=== PATIENT | female | born 1965 | race Caucasian/White ===

== ENCOUNTER → 2017-07-22 | Outpatient (CLI) | payer BC ==
[2017-07-22 09:55] VITALS: BP 110/76; PULSE 73; RESP 14; TEMP 98.4; BMI 38.9
--- NOTE | 2017-07-22 10:24 | P.PN ---
Subjective Progress Note Date: 07/22/17 HPI: She comes in with history of an adjustable band. She reports a complicated history of adjustments with Dr. Hernandez. She reports weight gain as she had lost contact with the bariatric center secondary to loss of insurance. Lowest weight with the band was 156 pounds. Highest weight was 298 pounds. She feels that she has lost restriction. ASSESSMANT: 1. Band complications. PLAN: 1. Abdominal Xray to investigate fracture of band tubing and or port. 2. Will need revision of band to new model as she has old high pressure out- dated system. 3. Band assessed without fluid return consistent with possible tube malfunction. 4. Other options for weight loss reviewed. Objective - Vital Signs Vital signs: Vital Signs Temp 98.4 F 07/22/17 09:40 Pulse 73 07/22/17 09:40 Resp 14 07/22/17 09:40 BP 110/76 07/22/17 09:40 Pulse Ox Intake & Output 07/21/17 07/22/17 07/22/17 18:59 06:59 18:59 Weight 112.763 kg
--- NOTE | 2017-07-22 11:37 | XR ---
EXAMINATION TYPE: XR abdomen 1V DATE OF EXAM: 07/22/2017 COMPARISON: 10/07/2014 HISTORY: Abdominal pain TECHNIQUE: One view abdominal series FINDINGS: The osseous structures are intact. The bowel gas pattern is nonspecific. Lap band surgery catheter n oted. Retained fecal debris throughout the colon. Hypertrophic and degenerative change of the spine. Arthropathy of the hips. Calcification the pelvis likely vascular. Surgical clips in the gallbladder fossa. IMPRESSION: 1. Nonspecific abdomen. Correlate for constipation.
== END | disposition home or self-care (01) ==
LOC: BARWHC3 09:22
PROVIDERS: ATTEND Surgery Plastic and Reconstructive Surgery
DX: K95.09 Other complications of gastric band procedure (principal); R63.5 Abnormal weight gain; Z98.84 Bariatric surgery status
CPT/HCPCS: 74018; 99212; 99213

== ENCOUNTER → 2017-07-29 | Outpatient (CLI) | payer BC ==
--- NOTE | 2017-07-29 08:41 | FL ---
EXAMINATION TYPE: FL barium swallow DATE OF EXAM: 07/29/2017 LAP BANDING LIMITED ESOPHAGRAM: CLINICAL HISTORY: Lap band placed roughly 10 years ago with dysphasia and pain over last few months. TECHNIQUE: Limited esophagram is performed utilizing 2-3 oz of barium. A total of 32 seconds of fluo roscopic time was utilized during procedure. 27 spot images are saved. COMPARISON: Abdominal x-ray from one week ago and from October 07, 2014 FINDINGS: Pre-procedure transfusion aide image shows lap band in satisfactory position in proximal stomach ju st below the left hemidiaphragm. The Phi angle is normal but noted slightly more vertical in positio n versus 2015 radiograph. Cholecystectomy clips are present. The patient then drank oral contrast. There is good flow of contrast along the course of the esophag us. There is good flow of contrast along the course of the lap band, there is no evidence of contras t extravasation to suggest leak. IMPRESSION: No fluoroscopic evidence of left band slippage or significant obstruction.
== END | disposition home or self-care (01) ==
LOC: RADFLMAIN 07:42
PROVIDERS: ATTEND Surgery Plastic and Reconstructive Surgery
DX: R13.10 Dysphagia, unspecified (principal); Z98.84 Bariatric surgery status
CPT/HCPCS: 74220

== ENCOUNTER → 2018-09-12 | Outpatient (CLI) | payer BC ==
[2018-09-12 17:02] VITALS: BP 145/83; PULSE 80; TEMP 98.6; BMI 40.7
--- NOTE | 2018-09-30 13:36 | P.HPBAR ---
Bariatric H&P - History & Physicial H&P Date: 09/12/18 History & Physicial: Visit/CC: band adjustment Patient initial contact: Initial weight: 134.717 kg Initial weight in pounds: 297.00 Height: 5 ft 7 in Initial BMI: 46.5 Last weight: Current weight: 117.934 kg Current weight in pounds: 260.00 Current BMI: 40.7 [place] body weight (based on NIH guidelines): 61.235 kg Excess body weight loss: 22.8% The patient is a 53 year-old F who presents for Bariatric Assessment. Patient presents today for her LAP-BAND adjustment. She's not been seen several years. She states she feels hungry and is requesting a fill. She has gained approximately 40 pounds last 6 months. Past Medical History Past Medical History: Thyroid Disorder Additional Past Medical History / Comment(s): environmental allergies History of Any Multi-Drug Resistant Organisms: None Reported Past Surgical History: Bariatric Surgery, Cholecystectomy, Hysterectomy, Tonsillectomy Additional Past Surgical History / Comment(s): lap band 2008, x2, Past Anesthesia/Blood Transfusion Reactions: No Reported Reaction Smoking Status: Former smoker Surgical - Exam Vital Signs Temp Pulse BP 98.6 F 80 145/83 09/12/18 16:55 09/12/18 16:55 09/12/18 16:55 - General well developed, well nourished, no distress - Abdomen Abdomen: soft, non tender Bariatric Assessment & Plan Plan: Patient's lap band was adjusted. Patient has a malfunctioning LAP-BAND port with evidence of fracture of the port. Patient was scheduled for replacement of LAP-BAND port. Bariatric Checklist Checklist: Plan: Checklist: EGD: 1. Hiatal hernia: 2. H. Pylori: HgbA1c: Vitamin D: Smoking: Former smoker Primary care physician referral: Shelia Boykin ([facility]) Psychiatry clearance: Cardiology clearance: Sleep study: Diet journal: VTE risk score: VTE risk level: Rehab needs at discharge:
== END | disposition home or self-care (01) ==
LOC: BARWHC3 15:36
PROVIDERS: ATTEND Surgery
DX: Z46.51 Encounter for fitting and adjustment of gastric lap band (principal); Z87.891 Personal history of nicotine dependence; Z98.84 Bariatric surgery status
CPT/HCPCS: 99212

== ENCOUNTER → 2018-09-22 | Outpatient (CLI) | payer BC ==
[2018-09-22 17:09] LABS: Basophils # (A) 0.1 k/uL (0-0.2); Basophils % (A) 1 %; Eosinophils # (A) 0.2 k/uL (0-0.7); Eosinophils % (A) 2 %; HCT 42.6 % (34.0-46.0); Lymphocytes # (A) 1.9 k/uL (1.0-4.8); Lymphocytes % (A) 20 %; MCH 31.5 pg (25.0-35.0); MCHC 32.8 g/dL (31.0-37.0); MCV 96.1 fL (80.0-100.0); Mean Platelet Volume 6.6; Monocytes # (A) 0.5 k/uL (0-1.0); Monocytes % (A) 6 %; Neutrophils # (A) 6.7 k/uL (1.3-7.7); Neutrophils % (A) 70 %; Platelet Count 328 k/uL (150-450); RBC 4.43 m/uL (3.80-5.40); WBC 9.5 k/uL (3.8-10.6)
[2018-09-22 17:13] LABS: ALT 12 U/L (9-52); AST 19 U/L (14-36); African American GFR (CKD) >90 (>60 ml/min/1.73 sqM); Albumin 4.3 g/dL (3.5-5.0); Alkaline Phosphatase 87 U/L (38-126); Anion Gap 9 mmol/L; Blood Urea Nitrogen 16 mg/dL (7-17); Calcium 9.7 mg/dL (8.4-10.2); Carbon Dioxide 26 mmol/L (22-30); Chloride 106 mmol/L (98-107); Glucose 82 mg/dL (74-99); Sodium 141 mmol/L (137-145); Total Bilirubin 0.5 mg/dL (0.2-1.3); Total Protein 7.6 g/dL (6.3-8.2)
== END | disposition home or self-care (01) ==
LOC: LABPAT 16:40
PROVIDERS: ATTEND Surgery
DX: Z01.812 Encounter for preprocedural laboratory examination (principal); Z01.818 Encounter for other preprocedural examination
CPT/HCPCS: 80053; 85025; 93005

== ENCOUNTER 2018-09-30 06:13 | Day surgery (SDC) | payer BC ==
[2018-09-28 11:57] VITALS: BMI 40.7
[~2018-09-30 06:13] MED LIST: DEXAMETHASONE SOD PHOSPHATE 10 MG/ML 1 ML VIAL IV ONE; HYDROmorphone 0.5 MG/0.5 ML SYRINGE IVP PRN; LACTATED RINGERS 1,000 ML IV SCH; ONDANSETRON 4 MG/2 ML VIAL IVP ONE; ONDANSETRON 4 MG/2 ML VIAL IVP PRN
[2018-09-30] MEDS ORDERED: LIDOCAINE 1% 20 ML VIAL (10MG/ML) FOR IV START INTRADERMA ONE (07:16)
[2018-09-30] MEDS ORDERED: HEPARIN SODIUM,PORCINE 5,000 UNIT/ML 1 ML VIAL SQ ONE (07:53)
[2018-09-30] MEDS ORDERED: SUCCINYLCHOLINE CHLORIDE 100 MG/5 ML SYR IV ONE (08:01)
[2018-09-30] MEDS ORDERED: LIDOCAINE 1% INJ 10MG/ML (20 ML MDV) ONE (08:01)
[2018-09-30] MEDS ORDERED: NEOSTIGMINE 1 MG/ML 10 ML VIAL ONE (08:01)
[2018-09-30] MEDS ORDERED: MIDAZOLAM 2 MG/2 ML VIAL ONE (08:01)
[2018-09-30] MEDS ORDERED: PROPOFOL 10 MG/ML 20 ML VIAL IV ONE (08:01)
[2018-09-30] MEDS ORDERED: fentaNYL (PF) 50 MCG/ML 2 ML AMP ONE (08:01)
[2018-09-30] MEDS ORDERED: KETOROLAC 30 MG/ML 1 ML VIAL ONE (08:01)
[2018-09-30] MEDS ORDERED: ROCURONIUM BROMIDE 10 MG/ML 10 ML VIAL IV ONE (08:01)
[2018-09-30] MEDS ORDERED: GLYCOPYRROLATE 0.2 MG/ML 2 ML VIAL ONE (08:01)
--- NOTE | 2018-09-30 08:06 | P.GSHP ---
History of Present Illness H&P Date: 09/30/18 Chief Complaint: LAP-BAND port malfunction This is a 53-year-old female who had LAP-BAND surgery performed several years ago. Patient notes a decrease in restriction. She was seen Shilpa found have a LAP-BAND port malfunction. Patient presents today for laparoscopic removal and replacement of LAP-BAND port. Past Medical History Past Medical History: Thyroid Disorder Additional Past Medical History / Comment(s): environmental allergies , Lap Band. History of Any Multi-Drug Resistant Organisms: None Reported Past Surgical History: Bariatric Surgery, Cholecystectomy, Hysterectomy, Tonsillectomy Additional Past Surgical History / Comment(s): lap band 2007 (Dr Friend)., c- section x2, Past Anesthesia/Blood Transfusion Reactions: No Reported Reaction Past Psychological History: No Psychological Hx Reported Smoking Status: Former smoker Past Alcohol Use History: None Reported Additional Past Alcohol Use History / Comment(s): quit smoking 1999, smoked 1 ppd, smoked approx 10 years. Past Drug Use History: None Reported - Past Family History Mother Family Medical History: Cancer Additional Family Medical History / Comment(s): Leukemia and Breast Cancer Medications and Allergies Home Medications Medication Instructions Recorded Confirmed Type Levothyroxine Sodium [Synthroid] 137 mcg PO DAILY 10/24/14 09/30/18 History Estradiol [Estrace] 0.5 mg PO DAILY 09/05/18 09/30/18 History Cetirizine HCl [Zyrtec] 10 mg PO DAILY 09/12/18 09/30/18 History Allergies Allergy/AdvReac Type Severity Reaction Status Date / Time egg Allergy Rash/Hives Verified 09/30/18 06:51 peanut Allergy Rash/Hives Verified 09/30/18 06:51 cat dander AdvReac Rash/Hives Verified 09/30/18 06:51 dog dander AdvReac Rash/Hives Verified 09/30/18 06:51 environmental AdvReac Rash/Hives Uncoded 09/30/18 06:51 pet dander AdvReac Rash/Hives Uncoded 09/30/18 06:51 Surgical - Exam Vital Signs Temp Pulse Resp BP Pulse Ox 98.3 F 73 16 123/58 95 09/30/18 07:14 09/30/18 07:14 09/30/18 07:14 09/30/18 07:14 07/19/19 07:14 - General well developed, well nourished, no distress - Eyes PERRL - ENT normal pinna - Neck no masses - Respiratory normal expansion - Cardiovascular Rhythm: regular - Abdomen Abdomen: soft, non tender Assessment and Plan Assessment: LAP-BAND port malfunction. We'll perform laparoscopic removal and replacement of LAP-BAND port.
[2018-09-30] MEDS ORDERED: BUPIVACAINE (PF) 0.25% 30 ML VIAL SQ ONE ×2 (08:24)
[2018-09-30 09:08] VITALS: TEMP 98
--- NOTE | 2018-09-30 09:09 | P.OP ---
Date of Procedure: 09/30/18 Preoperative Diagnosis: LAP-BAND port malfunction Postoperative Diagnosis: LAP-BAND port malfunction Procedure(s) Performed: Laparoscopic removal and replacement of LAP-BAND port Anesthesia: MARA Surgeon: Oneil Friend Estimated Blood Loss (ml): 5 Pathology: none sent Condition: stable Disposition: PACU Description of Procedure: The patient's placed on the operative table in the supine position. She received general anesthesia. Her abdomen was prepped and draped in the usual sterile fashion. The skin incision sites were anesthetized 1% local Xylocaine. The skin was incised over the LAP-BAND port then using blunt and sharp dissection and electrocautery the LAP-BAND port was dissected free. The LAP- BAND port was inspected. There appeared to be abrasion of the LAP-BAND port causing a fluid leak. The Tube was then cut. Next a 5 mm optical trocar is placed into the perineal cavity under direct vision at the LAP-BAND port site the abdomen was insufflated and then another 5 mm trocar was placed in the right epigastric position and a other 5 mm trocar was placed in the left lower quadrant. The camera is placed in left lower quadrant. The LAP-BAND Tube was then brought over to the right upper quadrant port site and then withdrawn from the peritoneal cavity. The trochars withdrawn. The new LAP-BAND port was connected to the Tube and then secured the fascia is using 0 Nurolon suture. The skin was closed with interrupted 3-0 Monocryl suture. The LAP-BAND had been flushed with 1 mL of normal saline. Patient tolerated procedure well was sent to recovery in stable condition.
[2018-09-30 09:49] VITALS: RESP 17
[2018-09-30 10:00] VITALS: BP 135/80; PULSE 72
== END 2018-09-30 10:32 | disposition home or self-care (01) ==
LOC: OR 06:13
PROVIDERS: ATTEND Surgery
DX: T85.518A Breakdown (mechanical) of other gastrointestinal prosthetic devices, implants and grafts, initial encounter (principal); K95.09 Other complications of gastric band procedure; E07.9 Disorder of thyroid, unspecified; Z90.49 Acquired absence of other specified parts of digestive tract; Z90.710 Acquired absence of both cervix and uterus; Z87.891 Personal history of nicotine dependence; Z80.3 Family history of malignant neoplasm of breast; Z80.6 Family history of leukemia; Z79.890 Hormone replacement therapy; Z79.899 Other long term (current) drug therapy; Z91.012 Allergy to eggs; Z91.018 Allergy to other foods; Z91.048 Other nonmedicinal substance allergy status
CPT/HCPCS: 43659; C1751; J2250; J1644; J1100; J2710; J0690; J2405; J2001; J3010; J1885; J0330; J2704

== ENCOUNTER → 2018-10-17 | Outpatient (CLI) | payer BC ==
[2018-10-17 15:50] VITALS: BP 111/72; PULSE 74; RESP 16; TEMP 98.4; BMI 40.4
--- NOTE | 2018-10-17 16:36 | P.HPBAR ---
Bariatric H&P - History & Physicial H&P Date: 10/17/18 History & Physicial: Visit/CC: Band Adj Patient initial contact: Initial weight: 134.717 kg Initial weight in pounds: 297.00 Height: 5 ft 7 in Initial BMI: 46.5 Last weight: Current weight: 117.027 kg Current weight in pounds: 258.00 Current BMI: 40.4 [place] body weight (based on NIH guidelines): 61.235 kg Excess body weight loss: 24.0% The patient is a 53 year-old F who presents for Bariatric Assessment. Patient presents today for lab band follow up. She had a recent port replacement. He is hungry requesting a fill. Past Medical History Past Medical History: Thyroid Disorder Additional Past Medical History / Comment(s): environmental allergies , Lap Band. History of Any Multi-Drug Resistant Organisms: None Reported Past Surgical History: Bariatric Surgery, Cholecystectomy, Hysterectomy, Tonsillectomy Additional Past Surgical History / Comment(s): lap band 2007 (Dr Friend)., c- section x2, Past Anesthesia/Blood Transfusion Reactions: No Reported Reaction Smoking Status: Former smoker - Past Family History Mother Family Medical History: Cancer Additional Family Medical History / Comment(s): Leukemia and Breast Cancer Surgical - Exam Vital Signs Temp Pulse Resp BP 98.4 F 74 16 111/72 10/17/18 15:48 10/17/18 15:48 10/17/18 15:48 10/17/18 15:48 - General well developed, well nourished, no distress - Eyes PERRL - ENT normal pinna - Neck no masses - Respiratory normal expansion - Cardiovascular Rhythm: regular - Abdomen Abdomen: soft, non tender Bariatric Assessment & Plan Plan: Patient's lap band was adjusted. She had 2 mL added to her band. She currently has 5 mL in the band. She's ill drink water without difficulty. She'll follow- up in 4 weeks. Bariatric Checklist Checklist: Plan: Checklist: EGD: 1. Hiatal hernia: 2. H. Pylori: HgbA1c: Vitamin D: Smoking: Former smoker Primary care physician referral: Shelia Boykni ([facility]) Psychiatry clearance: Cardiology clearance: Sleep study: Diet journal: VTE risk score: VTE risk level: Rehab needs at discharge:
== END | disposition home or self-care (01) ==
LOC: BARWHC3 15:32
PROVIDERS: ATTEND Surgery
DX: Z46.51 Encounter for fitting and adjustment of gastric lap band (principal); Z87.891 Personal history of nicotine dependence; Z90.49 Acquired absence of other specified parts of digestive tract
CPT/HCPCS: 99212

== ENCOUNTER → 2018-11-07 | Outpatient (CLI) | payer BC ==
--- NOTE | 2018-11-07 16:10 | P.HPBAR ---
Bariatric H&P - History & Physicial H&P Date: 11/07/18 History & Physicial: Visit/CC: Patient initial contact: Initial weight: 134.717 kg Initial weight in pounds: Height: Initial BMI: Last weight: Current weight: Current weight in pounds: Current BMI: [place] body weight (based on NIH guidelines): Excess body weight loss: The patient is a 53 year-old F who presents for Bariatric Assessment. She presents today for lab band follow up. She's lost 7 pounds since her last vis it. She's had some minimal.. Past Medical History Past Medical History: Thyroid Disorder Additional Past Medical History / Comment(s): environmental allergies , Lap Band. History of Any Multi-Drug Resistant Organisms: None Reported Past Surgical History: Bariatric Surgery, Cholecystectomy, Hysterectomy, Tonsillectomy Additional Past Surgical History / Comment(s): lap band 2007 (Dr Friend)., c- section x2, Past Anesthesia/Blood Transfusion Reactions: No Reported Reaction Smoking Status: Former smoker - Past Family History Mother Family Medical History: Cancer Additional Family Medical History / Comment(s): Leukemia and Breast Cancer Surgical - Exam - General well developed, well nourished, no distress - Eyes PERRL - Abdomen Abdomen: soft Bariatric Assessment & Plan Plan: Patient is an excellent weight loss since her last lap band fill. She was not adjusted today. Her GERD is minimal will be observed. She'll follow-up in 4 weeks. Bariatric Checklist Checklist: Plan: Checklist: EGD: 1. Hiatal hernia: 2. H. Pylori: HgbA1c: Vitamin D: Smoking: Former smoker Primary care physician referral: Shelia Boykin ([facility]) Psychiatry clearance: Cardiology clearance: Sleep study: Diet journal: VTE risk score: VTE risk level: Rehab needs at discharge:
[2018-11-07 16:13] VITALS: BP 138/84; PULSE 69; TEMP 98
== END | disposition home or self-care (01) ==
LOC: BARWHC3 15:36
PROVIDERS: ATTEND Surgery
DX: Z48.815 Encounter for surgical aftercare following surgery on the digestive system (principal); K21.9 Gastro-esophageal reflux disease without esophagitis; Z87.891 Personal history of nicotine dependence
CPT/HCPCS: 99211

== ENCOUNTER → 2018-11-28 | Outpatient (CLI) | payer BC ==
[2018-11-28 16:28] VITALS: BP 124/84; PULSE 73; RESP 16; TEMP 98.4; BMI 39.3
--- NOTE | 2018-11-28 16:38 | P.HPBAR ---
Bariatric H&P - History & Physicial H&P Date: 11/28/18 History & Physicial: Visit/CC: band adj Patient initial contact: Initial weight: 134.717 kg Initial weight in pounds: 297.00 Height: 5 ft 7 in Initial BMI: 46.5 Last weight: Current weight: 113.852 kg Current weight in pounds: 251.00 Current BMI: 39.3 [place] body weight (based on NIH guidelines): 61.235 kg Excess body weight loss: 28.3% The patient is a 53 year-old F who presents for Bariatric Assessment. Patient presents today for adjustment of her LAP-BAND. She currently feels hungry. Past Medical History Past Medical History: Thyroid Disorder Additional Past Medical History / Comment(s): environmental allergies , Lap Band. History of Any Multi-Drug Resistant Organisms: None Reported Past Surgical History: Bariatric Surgery, Cholecystectomy, Hysterectomy, Tonsillectomy Additional Past Surgical History / Comment(s): lap band 2007 (Dr Friend)., c- section x2, Past Anesthesia/Blood Transfusion Reactions: No Reported Reaction Past Psychological History: No Psychological Hx Reported Smoking Status: Former smoker Past Alcohol Use History: None Reported Additional Past Alcohol Use History / Comment(s): quit smoking 1999, smoked 1 ppd, smoked approx 10 years. Past Drug Use History: None Reported - Past Family History Mother Family Medical History: Cancer Additional Family Medical History / Comment(s): Leukemia and Breast Cancer Surgical - Exam Vital Signs Temp Pulse Resp BP 98.4 F 73 16 124/84 11/28/18 16:25 11/28/18 16:25 11/28/18 16:25 11/28/18 16:25 - General well developed, well nourished, no distress - Eyes PERRL - Abdomen Abdomen: soft, non tender Bariatric Assessment & Plan Plan: Patient's lap band was adjusted. She had 0.5 mL added to her band. She currently has 5.5 mL in the band. She was able to water without difficulty. She'll follow-up in 4 weeks. Bariatric Checklist Checklist: Plan: Checklist: EGD: 1. Hiatal hernia: 2. H. Pylori: HgbA1c: Vitamin D: Smoking: Former smoker Primary care physician referral: Shelia Boykin ([facility]) Psychiatry clearance: Cardiology clearance: Sleep study: Diet journal: VTE risk score: VTE risk level: Rehab needs at discharge:
== END | disposition home or self-care (01) ==
LOC: BARWHC3 15:57
PROVIDERS: ATTEND Surgery
DX: Z46.51 Encounter for fitting and adjustment of gastric lap band (principal); Z87.891 Personal history of nicotine dependence; Z98.84 Bariatric surgery status; Z90.49 Acquired absence of other specified parts of digestive tract; Z90.710 Acquired absence of both cervix and uterus
CPT/HCPCS: 99212

== ENCOUNTER → 2019-12-25 | Outpatient (CLI) | payer BC ==
[2019-12-25 14:48] VITALS: BP 159/65; PULSE 74; RESP 16; TEMP 98.9; BMI 36.9
--- NOTE | 2019-12-25 15:41 | P.HPBAR ---
Bariatric H&P - History & Physicial H&P Date: 12/25/19 History & Physicial: Visit/CC: band f/u Patient initial contact: Initial weight: 134.717 kg Initial weight in pounds: 297.00 Height: 5 ft 7 in Initial BMI: 46.5 Last weight: Current weight: 107.048 kg Current weight in pounds: 236.00 Current BMI: 36.9 [place] body weight (based on NIH guidelines): 61.235 kg Excess body weight loss: 37.6% The patient is a 54 year-old F who presents for Bariatric Assessment. Patient presents today for lab band follow. She has some complaints of GERD. Past Medical History Past Medical History: Thyroid Disorder Additional Past Medical History / Comment(s): environmental allergies History of Any Multi-Drug Resistant Organisms: None Reported Past Surgical History: Bariatric Surgery, Cholecystectomy, Hysterectomy, Tonsillectomy Additional Past Surgical History / Comment(s): lap band 2007 (Dr Friend)., c- section x2, Past Anesthesia/Blood Transfusion Reactions: No Reported Reaction Past Psychological History: No Psychological Hx Reported Smoking Status: Unknown if ever smoked Past Alcohol Use History: None Reported Additional Past Alcohol Use History / Comment(s): quit smoking 1999, smoked 1 ppd, smoked approx 10 years. Past Drug Use History: None Reported - Past Family History Mother Family Medical History: Cancer Additional Family Medical History / Comment(s): Leukemia and Breast Cancer Surgical - Exam Vital Signs Temp Pulse Resp BP 98.9 F 74 16 159/65 12/25/19 14:45 12/25/19 14:45 12/25/19 14:45 12/25/19 14:45 - General well developed, well nourished, no distress - Eyes PERRL - ENT normal pinna - Neck no masses - Respiratory normal expansion - Cardiovascular Rhythm: regular - Abdomen Abdomen: soft, non tender Bariatric Assessment & Plan Plan: Patient had 1 mL removed from her LAP-BAND. She will follow-up in 4 weeks. She currently has 3 mL in the band. Bariatric Checklist Checklist: Plan: Checklist: EGD: 1. Hiatal hernia: 2. H. Pylori: HgbA1c: Vitamin D: Smoking: Former smoker Primary care physician referral: Shelia Boykin ([facility]) Psychiatry clearance: Cardiology clearance: Sleep study: Diet journal: VTE risk score: VTE risk level: Rehab needs at discharge:
== END ==
LOC: BARWHC3 13:43
PROVIDERS: ATTEND Surgery
DX: Z48.815 Encounter for surgical aftercare following surgery on the digestive system (principal); Z98.84 Bariatric surgery status; Z87.891 Personal history of nicotine dependence; Z90.49 Acquired absence of other specified parts of digestive tract
CPT/HCPCS: 99212

== ENCOUNTER → 2019-12-28 | Outpatient (CLI) | payer BC ==
[2019-12-28 09:24] VITALS: BP 142/91; PULSE 82; RESP 16; TEMP 98.6; BMI 36.8
--- NOTE | 2019-12-28 09:33 | P.HPBAR ---
Bariatric H&P - History & Physicial H&P Date: 12/28/19 History & Physicial: Visit/CC: Band Adj-too tight Patient initial contact: Initial weight: 134.717 kg Initial weight in pounds: 297.00 Height: 5 ft 7 in Initial BMI: 46.5 Last weight: Current weight: 106.594 kg Current weight in pounds: 235.00 Current BMI: 36.8 [place] body weight (based on NIH guidelines): 61.235 kg Excess body weight loss: 38.2% The patient is a 54 year-old F who presents for Bariatric Assessment. Patient's complaints of GERD. She is question of fluid removed from her band. Past Medical History Past Medical History: Thyroid Disorder Additional Past Medical History / Comment(s): environmental allergies History of Any Multi-Drug Resistant Organisms: None Reported Past Surgical History: Bariatric Surgery, Cholecystectomy, Hysterectomy, Tonsillectomy Additional Past Surgical History / Comment(s): lap band 2007 (Dr Friend)., c- section x2, Past Anesthesia/Blood Transfusion Reactions: No Reported Reaction Smoking Status: Unknown if ever smoked - Past Family History Mother Family Medical History: Cancer Additional Family Medical History / Comment(s): Leukemia and Breast Cancer Surgical - Exam Vital Signs Temp Pulse Resp BP 98.6 F 82 16 142/91 12/28/19 09:21 12/28/19 09:21 12/28/19 09:21 12/28/19 09:21 - General well developed, well nourished, no distress - Eyes PERRL - ENT normal pinna - Neck no masses - Respiratory normal expansion - Cardiovascular Rhythm: regular - Abdomen Abdomen: soft, non tender Bariatric Assessment & Plan Plan: GERD. Patient LAP-BAND was entered. She had 5 mL removal LAP-BAND. She is scheduled for esophagus. She'll follow-up in 2 weeks. Bariatric Checklist Checklist: Plan: Checklist: EGD: 1. Hiatal hernia: 2. H. Pylori: HgbA1c: Vitamin D: Smoking: Former smoker Primary care physician referral: Shelia Boykin ([facility] Psychiatry clearance: Cardiology clearance: Sleep study: Diet journal: VTE risk score: VTE risk level: Rehab needs at discharge:
--- NOTE | 2019-12-28 16:49 | FL ---
EXAMINATION TYPE: FL barium swallow DATE OF EXAM: 12/28/2019 COMPARISON: None HISTORY: LAP-BAND, dysphasia TECHNIQUE: Single contrast utilizing Isovue was used for evaluation of the distal esophagus FINDINGS: LAP-BAND has a somewhat more vertical orientation currently measuring 18 degrees from verti tien compared to 29 previous. Following contrast administration contrast immediately passes through th e lap band. However, there is hesitancy of contrast completely emptying. There is delay emptying thro ugh the gastroesophageal lap band level. Note is made of multiple tertiary contractions during the ex amination Fluoroscopy time: 1 minute 22 seconds Images: 10 IMPRESSION: 1. No focal stenosis to the lap band is evident. However, there is moderate hesitancy passing throug h the lap band. 2. Presbyesophagus
== END | disposition home or self-care (01) ==
LOC: BARWHC3 09:08
PROVIDERS: ATTEND Surgery
DX: Z46.51 Encounter for fitting and adjustment of gastric lap band (principal); K22.8 Other specified diseases of esophagus; Z87.891 Personal history of nicotine dependence; Z90.49 Acquired absence of other specified parts of digestive tract; Z98.84 Bariatric surgery status
CPT/HCPCS: 74220; 99213; Q9967

== ENCOUNTER → 2020-01-01 | Outpatient (CLI) | payer BC ==
[2020-01-01 13:16] VITALS: BP 146/86; PULSE 103; TEMP 98; BMI 36.0
--- NOTE | 2020-01-08 14:58 | P.HPBAR ---
Bariatric H&P - History & Physicial H&P Date: 01/01/20 History & Physicial: Visit/CC: lap band follow up Patient initial contact: Initial weight: 134.717 kg Initial weight in pounds: 297.00 Height: 5 ft 7 in Initial BMI: 46.5 Last weight: Current weight: 104.326 kg Current weight in pounds: 230.00 Current BMI: 36.0 [place] body weight (based on NIH guidelines): 61.235 kg Excess body weight loss: 41.3% The patient is a 54 year-old F who presents for Bariatric Assessment. Patient's complaints of GERD and epigastric pain. She's also some mild dysphagia. Past Medical History Past Medical History: Thyroid Disorder Additional Past Medical History / Comment(s): environmental allergies History of Any Multi-Drug Resistant Organisms: None Reported Past Surgical History: Bariatric Surgery, Cholecystectomy, Hysterectomy, Tonsillectomy Additional Past Surgical History / Comment(s): lap band 2007 (Dr Friend)., c- section x2, Past Anesthesia/Blood Transfusion Reactions: No Reported Reaction Past Psychological History: No Psychological Hx Reported Smoking Status: Unknown if ever smoked Past Alcohol Use History: None Reported Additional Past Alcohol Use History / Comment(s): quit smoking 1999, smoked 1 ppd, smoked approx 10 years. Past Drug Use History: None Reported - Past Family History Mother Family Medical History: Cancer Additional Family Medical History / Comment(s): Leukemia and Breast Cancer Surgical - Exam Vital Signs Temp Pulse BP 98 F 103 H 146/86 01/01/20 13:13 01/01/20 13:13 01/01/20 13:13 - General well developed, well nourished, no distress - Eyes PERRL - ENT normal pinna - Neck no masses - Respiratory normal expansion - Cardiovascular Rhythm: regular - Abdomen Abdomen: soft, non tender Bariatric Assessment & Plan Plan: . Epigastric pain, mild dysphagia. Patient was scheduled for EGD. Bariatric Checklist Checklist: Plan: Checklist: EGD: 1. Hiatal hernia: 2. H. Pylori: HgbA1c: Vitamin D: Smoking: Former smoker Primary care physician referral: Shelia Boykin ([facility]) Psychiatry clearance: Cardiology clearance: Sleep study: Diet journal: VTE risk score: VTE risk level: Rehab needs at discharge:
== END | disposition home or self-care (01) ==
LOC: BARWHC3 12:40
PROVIDERS: ATTEND Surgery
DX: R13.10 Dysphagia, unspecified (principal); R10.13 Epigastric pain
CPT/HCPCS: 99211

== ENCOUNTER → 2020-01-04 | Day surgery (SDC) | payer BC ==
[2020-01-02 16:08] VITALS: BMI 36.0
[~2020-01-04] MED LIST changes: -DEXAMETHASONE SOD PHOSPHATE 10 MG/ML 1 ML VIAL IV ONE; -HYDROmorphone 0.5 MG/0.5 ML SYRINGE IVP PRN; -LACTATED RINGERS 1,000 ML IV SCH; +LIDOCAINE 1% (10MG/ML) FOR IV START INTRADERMA ONE; +LIDOCAINE 1% INJ 10MG/ML (20 ML MDV) ONE; -ONDANSETRON 4 MG/2 ML VIAL IVP ONE; -ONDANSETRON 4 MG/2 ML VIAL IVP PRN; +PROPOFOL 10 MG/ML 20 ML VIAL IV ONE
[2020-01-04 12:25] VITALS: TEMP 97.4
[2020-01-04] MEDS: LACTATED RINGERS 1,000 ML IV SCH ×2 (12:38→12:43)
--- NOTE | 2020-01-04 12:41 | P.GSHP ---
History of Present Illness H&P Date: 01/04/20 Chief Complaint: GERD, dysphagia Is a 51-year-old female history of LAP-BAND surgery. Patient's with GERD and dysphagia. She presents today for EGD. Past Medical History Past Medical History: GERD/Reflux, Thyroid Disorder Additional Past Medical History / Comment(s): environmental allergies, pt states unable to swallow pills unless she opens them and takes them with applesauce, states taking liquid diet . History of Any Multi-Drug Resistant Organisms: None Reported Past Surgical History: Bariatric Surgery, Cholecystectomy, Hysterectomy, Tonsillectomy Additional Past Surgical History / Comment(s): lap band 2007 (Dr Friend)., c- section x2, Past Anesthesia/Blood Transfusion Reactions: No Reported Reaction Past Psychological History: No Psychological Hx Reported Smoking Status: Former smoker Past Alcohol Use History: None Reported Additional Past Alcohol Use History / Comment(s): quit smoking 1999, smoked 1 ppd, smoked approx 10 years. Past Drug Use History: None Reported - Past Family History Mother Family Medical History: Cancer Additional Family Medical History / Comment(s): Leukemia and Breast Cancer Medications and Allergies Home Medications Medication Instructions Recorded Confirmed Type Levothyroxine Sodium [Synthroid] 137 mcg PO DAILY 10/24/14 01/04/20 History estradioL [Estrace] 0.5 mg PO DAILY 09/05/18 01/04/20 History Cetirizine HCl [Zyrtec] 10 mg PO DAILY 09/12/18 01/04/20 History Mylanta 1 dose PO DIRECTED PRN 01/02/20 01/04/20 History Omeprazole 40 mg PO DAILY 01/02/20 01/04/20 History Allergies Allergy/AdvReac Type Severity Reaction Status Date / Time egg Allergy Rash/Hives Verified 01/04/20 12:15 peanut Allergy Rash/Hives Verified 01/04/20 12:15 cat dander AdvReac Rash/Hives Verified 01/04/20 12:15 dog dander AdvReac Rash/Hives Verified 01/04/20 12:15 environmental AdvReac Rash/Hives Uncoded 01/04/20 12:15 pet dander AdvReac Rash/Hives Uncoded 01/04/20 12:15 Surgical - Exam Vital Signs Temp Pulse Resp BP Pulse Ox 97.4 F L 75 18 136/66 99 01/04/20 12:23 01/04/20 12:23 01/04/20 12:23 01/04/20 12:23 01/04/20 12:23 - General well developed, well nourished, no distress - Eyes PERRL - ENT normal pinna - Neck no masses - Respiratory normal expansion - Cardiovascular Rhythm: regular - Abdomen Abdomen: soft, non tender Assessment and Plan Assessment: GERD, dysphagia. We'll perform EGD.
--- NOTE | 2020-01-04 12:57 | P.OP ---
Date of Procedure: 01/04/20 Preoperative Diagnosis: GERD Epigastric pain Postoperative Diagnosis: Antral gastritis No evidence of inflammation or erosion of LAP-BAND Mild esophagitis Procedure(s) Performed: EGD Anesthesia: MAC Surgeon: Oneil Friend Pathology: other (Antrum, esophagus) Condition: stable Disposition: PACU Description of Procedure: The patient's placed on the endoscopy table in the lateral position. She received IV Cipro. The gastroscope was oropharynx past esophagus stomach. Scope was then placed through the pylorus. First and second portion of duodenum normal. The scope was then brought back the antrum this was mildly inflamed. A biopsies performed. Scope was unretroflexed and the remainder of the stomach appeared normal. There was no evidence of any inflammatory change of the LAP- BAND. There is no evidence of erosions. The GE junction was at 40 cm the distal esophagus appeared inflamed and a biopsies performed. The proximal esophagus appeared normal. Scope was withdrawn for patient
[2020-01-04 13:18] VITALS: BP 130/67; PULSE 71; RESP 16
== END ==
LOC: ORWHC2ENDO 10:39
PROVIDERS: ATTEND Surgery
DX: K21.00 Gastro-esophageal reflux disease with esophagitis, without bleeding (principal); K29.50 Unspecified chronic gastritis without bleeding; R13.10 Dysphagia, unspecified; E07.9 Disorder of thyroid, unspecified; Z98.84 Bariatric surgery status; Z90.49 Acquired absence of other specified parts of digestive tract; Z90.710 Acquired absence of both cervix and uterus; Z98.890 Other specified postprocedural states; Z87.891 Personal history of nicotine dependence; Z80.6 Family history of leukemia; Z80.3 Family history of malignant neoplasm of breast; Z79.890 Hormone replacement therapy; Z79.899 Other long term (current) drug therapy; Z91.012 Allergy to eggs; Z91.010 Allergy to peanuts; Z91.048 Other nonmedicinal substance allergy status
CPT/HCPCS: 88305; 43239; J2001; J2704

== ENCOUNTER 2020-01-10 03:44 | Emergency (ER) | payer BC ==
[2020-01-10] MEDS ORDERED: MAG HYDROX/AL HYDROX/SIMETH 30 ML, HYOSCYAMINE ELIXIR 10 ML, LIDOCAINE VISCOUS 2% 10 ML PO STA ×3 (05:05)
[2020-01-10] MEDS ORDERED: DICYCLOMINE 10 MG/ML 2 ML AMP IM STA (05:51)
[2020-01-10] MEDS ORDERED: SODIUM CHLORIDE 0.9% 500 ML 500 ML IV STA (06:43)
--- NOTE | 2020-01-10 07:16 | ED ---
General Adult HPI - General Source: patient Mode of arrival: ambulatory Limitations: no limitations - History of Present Illness -: days(s) Location: abdomen, left, right, lower extremity Quality: other Consistency: constant Improves with: none Worsens with: eating, medication Associated Symptoms: denies other symptoms Treatments Prior to Arrival: none <Charbel Talbert - Last Filed: 01/10/20 07:12> <Bola Gandhi - Last Filed: 01/10/20 09:00> - General Chief complaint: Allergic Reaction Stated complaint: Possible Med Reaction Time Seen by Provider: 01/10/20 04:24 - History of Present Illness Initial comments: This patient is a 54-year-old woman who presents with concern that she believes she is having a reaction to medication. The patient states she has been having chronic frontal headache which is a pressure-like sensation and has seen ENT for suspected chronic sinusitis. She had been given a number of courses of medication, including oral steroid, nasal steroid, course of Augmentin and now is taking a course of clarithromycin. The patient states that she has now taken 5 doses of erythromycin and she is having worsening symptoms consisting of generalized abdominal pain and bloating, nausea and inability to tolerate oral intake. She also is having bilateral lower extremity burning discomfort. She also feels anxious and shaky. Patient also has history of LAP-BAND surgery and did recently have upper endoscopy related to not being able take any oral intake. (Charbel Talbert) - Related Data Home Medications Medication Instructions Recorded Confirmed estradioL [Estrace] 0.5 mg PO DAILY 09/05/18 01/10/20 Albuterol Sulfate [Ventolin HFA] 2 puff INHALATION RT-Q4H PRN 01/10/20 01/10/20 Cetirizine HCl [Children's 10 mg PO DAILY 01/10/20 01/10/20 Cetirizine HCl] EPINEPHrine (Auto Inject) [Epipen] 0.3 mg IM ONCE PRN 01/10/20 01/10/20 Famotidine [Pepcid] 20 mg PO DAILY 01/10/20 01/10/20 Fluticasone Nasal [place] [Flonase 1 spr EA NOSTRIL BID 01/10/20 01/10/20 Nasal [place]] Levothyroxine Sodium [Synthroid] 137 mcg PO DAILY 01/10/20 01/10/20 Montelukast [Singulair] 10 mg PO DAILY 01/10/20 01/10/20 Omeprazole 20 mg PO BID 01/10/20 01/10/20 Previous Rx's Medication Instructions Recorded Famotidine [Pepcid] 20 mg PO DAILY #30 tablet 01/10/20 Sucralfate [Carafate] 1 gm PO BID #473 ml 01/10/20 Allergies Allergy/AdvReac Type Severity Reaction Status Date / Time egg Allergy Rash/Hives Verified 01/10/20 08:31 peanut Allergy Rash/Hives Verified 01/10/20 08:31 cat dander AdvReac Rash/Hives Verified 01/10/20 08:31 dog dander AdvReac Rash/Hives Verified 01/10/20 08:31 environmental AdvReac Rash/Hives Uncoded 01/10/20 03:51 pet dander AdvReac Rash/Hives Uncoded 01/10/20 03:51 Review of Systems ROS Other: All systems not noted in ROS Statement are negative. Constitutional: Reports: weakness. Denies: fever, chills Eyes: Denies: vision change Respiratory: Denies: cough, dyspnea Cardiovascular: Reports: palpitations. Denies: chest pain, dyspnea on exertion, orthopnea, edema Gastrointestinal: Reports: as per HPI, abdominal pain, nausea. Denies: vomiting, diarrhea, constipation, melena, hematochezia Genitourinary: Denies: dysuria, hematuria Musculoskeletal: Denies: back pain Skin: Denies: rash Neurological: Reports: as per HPI, paresthesias. Denies: headache, weakness, numbness <Charbel Talbert - Last Filed: 01/10/20 07:12> ROS Other: All systems not noted in ROS Statement are negative. <Bola Gandhi - Last Filed: 01/10/20 09:00> ROS Statement: Those systems with pertinent positive or pertinent negative responses have been documented in the HPI. Past Medical History Past Medical History: GERD/Reflux, Thyroid Disorder Additional Past Medical History / Comment(s): environmental allergies, pt states unable to swallow pills unless she opens them and takes them with applesauce, states taking liquid diet . History of Any Multi-Drug Resistant Organisms: None Reported Past Surgical History: Bariatric Surgery, Cholecystectomy, Hysterectomy, Tonsillectomy Additional Past Surgical History / Comment(s): lap band 2008 (Dr Friend)., c- section x2, Past Anesthesia/Blood Transfusion Reactions: No Reported Reaction Past Psychological History: No Psychological Hx Reported Smoking Status: Former smoker Past Alcohol Use History: None Reported Past Drug Use History: None Reported - Past Family History Mother Family Medical History: Cancer Additional Family Medical History / Comment(s): Leukemia and Breast Cancer <Charbel Talbert - Last Filed: 01/10/20 07:12> General Exam Limitations: no limitations General appearance: alert, anxious Head exam: Present: atraumatic, normocephalic Eye exam: Present: normal appearance. Absent: scleral icterus, conjunctival injection Neck exam: Present: normal inspection Respiratory exam: Present: normal lung sounds bilaterally. Absent: respiratory distress, wheezes, rales, rhonchi, stridor Cardiovascular Exam: Present: regular rate, normal rhythm, normal heart sounds. Absent: systolic murmur, diastolic murmur, rubs, gallop GI/Abdominal exam: Present: soft. Absent: distended, tenderness, guarding, rebound, rigid, mass, pulsatile mass, hernia Extremities exam: Present: normal inspection, normal capillary refill. Absent: pedal edema, calf tenderness Back exam: Present: normal inspection Neurological exam: Present: alert Psychiatric exam: Present: anxious Skin exam: Present: warm, dry, intact, normal color. Absent: rash <Charbel Talbert - Last Filed: 01/10/20 07:12> Course Vital Signs 01/10/20 01/10/20 01/10/20 03:49 05:00 06:45 Temperature 99.1 F 98.9 F 98.9 F Pulse Rate 94 87 82 Respiratory 18 16 18 Rate Blood Pressure 116/79 130/98 142/86 O2 Sat by Pulse 98 96 97 Oximetry Medical Decision Making - Lab Data Result diagrams: 01/10/20 06:55 01/10/20 06:55 <Bloa Gandhi - Last Filed: 01/10/20 09:00> - Medical Decision Making 53-year-old female with suspected medication reaction to clarithromycin. History of lap band with general abdominal discomfort. Workup reveals normal CBC, normal CMP, negative urinalysis. CT negative for acute intra-abdominal pathology. I discussed case with Dr. Friend who will see the patient in the bariatric clinic on Wednesday. Instructs Pepcid and Carafate. Patient feeling much better at the time my reevaluation. She will abstain from taking any more clarithromycin. This is listed as an ALLERGY. (Bola Gandhi) - Lab Data Lab Results 01/10/20 01/10/20 01/10/20 Range/Units 06:55 06:55 06:55 WBC 5.2 (3.8-10.6) k/uL RBC 4.60 (3.80-5.40) m/uL Hgb 14.6 (11.4-16.0) gm/dL Hct 43.3 (34.0-46.0) % MCV 94.1 (80.0-100.0) fL MCH 31.7 (25.0-35.0) pg MCHC 33.7 (31.0-37.0) g/dL RDW 12.4 (11.5-15.5) % Plt Count 237 (150-450) k/uL Neutrophils % 64 % Lymphocytes % 27 % Monocytes % 6 % Eosinophils % 1 % Basophils % 1 % Neutrophils # 3.3 (1.3-7.7) k/uL Lymphocytes # 1.4 (1.0-4.8) k/uL Monocytes # 0.3 (0-1.0) k/uL Eosinophils # 0.1 (0-0.7) k/uL Basophils # 0.0 (0-0.2) k/uL Sodium (137-145) mmol/L Potassium (3.5-5.1) mmol/L Chloride (98-107) mmol/L Carbon Dioxide (22-30) mmol/L Anion Gap mmol/L BUN (7-17) mg/dL Creatinine (0.52-1.04) mg/dL Est GFR (CKD-EPI)AfAm (>60 ml/min/1.73 sqM) Est GFR (CKD-EPI)NonAf (>60 ml/min/1.73 sqM) Glucose (74-99) mg/dL Calcium (8.4-10.2) mg/dL Total Bilirubin (0.2-1.3) mg/dL AST (14-36) U/L ALT (4-34) U/L Alkaline Phosphatase (38-126) U/L Total Protein (6.3-8.2) g/dL Albumin (3.5-5.0) g/dL Amylase (30-110) U/L Lipase (23-300) U/L Urine Color Colorless Urine Appearance Clear (Clear) Urine pH 7.5 (5.0-8.0) Ur Specific [place] 1.005 (1.001-1.035) Urine Protein Negative (Negative) Urine Glucose (UA) Negative (Negative) Urine Ketones Negative (Negative) Urine Blood Negative (Negative) Urine Nitrite Negative (Negative) Urine Bilirubin Negative (Negative) Urine Urobilinogen <2.0 (<2.0) mg/dL Ur Leukocyte Esterase Negative (Negative) Urine HCG, Qual Not Detected (Not Detectd) 01/10/20 Range/Units 06:55 WBC (3.8-10.6) k/uL RBC (3.80-5.40) m/uL Hgb (11.4-16.0) gm/dL Hct (34.0-46.0) % MCV (80.0-100.0) fL MCH (25.0-35.0) pg MCHC (31.0-37.0) g/dL RDW (11.5-15.5) % Plt Count (150-450) k/uL Neutrophils % % Lymphocytes % % Monocytes % % Eosinophils % % Basophils % % Neutrophils # (1.3-7.7) k/uL Lymphocytes # (1.0-4.8) k/uL Monocytes # (0-1.0) k/uL Eosinophils # (0-0.7) k/uL Basophils # (0-0.2) k/uL Sodium 140 (137-145) mmol/L Potassium 4.5 (3.5-5.1) mmol/L Chloride 106 (98-107) mmol/L Carbon Dioxide 27 (22-30) mmol/L Anion Gap 7 mmol/L BUN 6 L (7-17) mg/dL Creatinine 1.01 (0.52-1.04) mg/dL Est GFR (CKD-EPI)AfAm 74 (>60 ml/min/1.73 sqM) Est GFR (CKD-EPI)NonAf 64 (>60 ml/min/1.73 sqM) Glucose 99 (74-99) mg/dL Calcium 9.3 (8.4-10.2) mg/dL Total Bilirubin 0.7 (0.2-1.3) mg/dL AST 28 (14-36) U/L ALT 18 (4-34) U/L Alkaline Phosphatase 91 (38-126) U/L Total Protein 7.0 (6.3-8.2) g/dL Albumin 4.2 (3.5-5.0) g/dL Amylase 95 (30-110) U/L Lipase 120 (23-300) U/L Urine Color Urine Appearance (Clear) Urine pH (5.0-8.0) Ur Specific [place] (1.001-1.035) Urine Protein (Negative) Urine Glucose (UA) (Negative) Urine Ketones (Negative) Urine Blood (Negative) Urine Nitrite (Negative) Urine Bilirubin (Negative) Urine Urobilinogen (<2.0) mg/dL Ur Leukocyte Esterase (Negative) Urine HCG, Qual (Not Detectd) Disposition <Charbel Talbert - Last Filed: 01/10/20 07:12> Is patient prescribed a controlled substance at d/c from ED?: No Time of Disposition: 08:59 <Bola Gandhi - Last Filed: 01/10/20 09:00> Clinical Impression: Allergic reaction to drug, Abdominal pain Disposition: HOME SELF-CARE Instructions (If sedation given, give patient instructions): Abdominal Pain (ED), Adverse Drug Reaction (ED) Prescriptions: Sucralfate [Carafate] 1 gm PO BID #473 ml Famotidine [Pepcid] 20 mg PO DAILY #30 tablet Referrals: Len Silva MD [Primary Care Provider] - 1-2 days Oneil Friend MD [STAFF PHYSICIAN] - 1-2 days
[2020-01-10 07:19] LABS: Basophils % (A) 1 %; Eosinophils # (A) 0.1 k/uL (0-0.7); Eosinophils % (A) 1 %; HCT 43.3 % (34.0-46.0); HGB 14.6 gm/dL (11.4-16.0); Lymphocytes # (A) 1.4 k/uL (1.0-4.8); Lymphocytes % (A) 27 %; MCH 31.7 pg (25.0-35.0); MCHC 33.7 g/dL (31.0-37.0); MCV 94.1 fL (80.0-100.0); Monocytes # (A) 0.3 k/uL (0-1.0); Monocytes % (A) 6 %; Neutrophils # (A) 3.3 k/uL (1.3-7.7); Neutrophils % (A) 64 %; Platelet Count 237 k/uL (150-450); RDW 12.4 % (11.5-15.5); WBC 5.2 k/uL (3.8-10.6)
[2020-01-10 07:21] LABS: Appearance,Urine Clear (Clear); Bilirubin,Urine Negative (Negative); Blood,Urine Negative (Negative); Color,Urine Colorless; Glucose,Urine (UA) Negative (Negative); Ketones,Urine Negative (Negative); Leukocyte Esterase,Urine Negative (Negative); Nitrite,Urine Negative (Negative); PH, Urine 7.5 (5.0-8.0); Protein,Urine Negative (Negative); Specific Gravity,Urine 1.005 (1.001-1.035); Urobilinogen,Urine <2.0 mg/dL (<2.0)
[2020-01-10 07:30] LABS: Albumin 4.2 g/dL (3.5-5.0); Calcium 9.3 mg/dL (8.4-10.2); Potassium 4.5 mmol/L (3.5-5.1); Total Bilirubin 0.7 mg/dL (0.2-1.3)
--- NOTE | 2020-01-10 08:44 | CT ---
EXAMINATION TYPE: CT abdomen pelvis wo con DATE OF EXAM: 01/10/2020 HISTORY: Abdominal pain. Bloating and increased acid. CT DLP: 1142.2 mGycm. Automated Exposure Control for Dose Reduction was Utilized. TECHNIQUE: CT scan of the abdomen and pelvis is performed without oral or IV contrast. COMPARISON: NONE FINDINGS: Within the limitations of a non-contrast study, the following observations are made. LUNG BASES: Mild to minimal bibasilar linear scarring and/or atelectasis. LIVER/GB: Cholecystectomy clips. PANCREAS: No significant abnormality is seen. SPLEEN: No significant abnormality is seen. ADRENALS: No significant abnormality is seen. KIDNEYS: No renal stones or hydronephrosis seen bilaterally. BOWEL: Lap band device noted, position satisfactory. Suboptimal evaluation of bowel without enteric c ontrast. No suspicious bowel dilatation is seen. Single diverticulum in the sigmoid colon. No CT evid ence for acute diverticulitis. GENITAL ORGANS: Uterus surgically absent or markedly atrophic. Scattered pelvic phleboliths. Remnant ovary suspected axial image 75 are normal in size. LYMPH NODES: No greater than 1cm abdominal or pelvic lymph nodes are appreciated. OSSEOUS STRUCTURES: [id number] disc space narrowing lumbosacral junction. Mild axial joint sp raul loss with moderate acetabular spurring in both hips. OTHER: No significant additional abnormality is seen. IMPRESSION: No bowel obstruction. No ascites. No acute findings evident on noncontrast CT
[2020-01-10 09:16] VITALS: BP 132/78; PULSE 68; RESP 16; TEMP 98.1
== END 2020-01-10 09:17 | disposition home or self-care (01) ==
LOC: EC 03:44
DX: R51.9 Headache, unspecified (principal); T50.905A Adverse effect of unspecified drugs, medicaments and biological substances, initial encounter; R10.9 Unspecified abdominal pain; R11.0 Nausea; K21.9 Gastro-esophageal reflux disease without esophagitis; E07.9 Disorder of thyroid, unspecified; Z79.890 Hormone replacement therapy; Z79.899 Other long term (current) drug therapy; Z98.84 Bariatric surgery status; Z87.891 Personal history of nicotine dependence; Z91.012 Allergy to eggs; Z91.010 Allergy to peanuts; Z91.018 Allergy to other foods; Z90.49 Acquired absence of other specified parts of digestive tract; Z90.710 Acquired absence of both cervix and uterus
CPT/HCPCS: 36415; 80053; 82150; 83690; 85025; 81003; 81025; 74176; 96372; 99284; J0500

== ENCOUNTER 2020-01-11 01:05 | Observation (INO) | payer BC ==
[2020-01-11] MEDS ORDERED: MAG HYDROX/AL HYDROX/SIMETH 30 ML, HYOSCYAMINE ELIXIR 10 ML, LIDOCAINE VISCOUS 2% 10 ML PO STA ×3 (01:28)
--- NOTE | 2020-01-11 02:04 | ED ---
General Adult HPI - General Chief complaint: Recheck/Abnormal Lab/Rx Stated complaint: abdominal pain, recheck Time Seen by Provider: 01/11/20 01:15 Source: patient Mode of arrival: ambulatory Limitations: no limitations - History of Present Illness Initial comments: this patient is a 54-year-old woman who presents here to have reevaluation 4 chest and upper abdominal pain. This been going on for approximately 3 days now. She had been here yesterday and had evaluation for same. She was feeling a little better after medication, and her case had been reviewed with her surgeon who wanted to see her in the clinic. The patient states that she went home yesterday, had something to eat around noon and then any symptoms recur, and have been getting worse over the course of the evening. -: days(s) Location: chest, abdomen Quality: burning, sharp Consistency: constant Improves with: none Worsens with: eating Associated Symptoms: chest pain, nausea/vomiting Treatments Prior to Arrival: none - Related Data Home Medications Medication Instructions Recorded Confirmed estradioL [Estrace] 0.5 mg PO DAILY 09/05/18 01/15/20 Albuterol Sulfate [Ventolin HFA] 2 puff INHALATION RT-Q4H PRN 01/10/20 01/15/20 Cetirizine HCl [Children's 10 mg PO DAILY 01/10/20 01/15/20 Cetirizine HCl] EPINEPHrine (Auto Inject) [Epipen] 0.3 mg IM ONCE PRN 01/10/20 01/15/20 Fluticasone Nasal [place] [Flonase 1 spr EA NOSTRIL BID 01/10/20 01/15/20 Nasal [place]] Levothyroxine Sodium [Synthroid] 137 mcg PO DAILY 01/10/20 01/15/20 Montelukast [Singulair] 10 mg PO DAILY 01/10/20 01/15/20 Omeprazole 20 mg PO BID 01/10/20 01/15/20 Previous Rx's Medication Instructions Recorded Acetaminophen Tab [Tylenol] 650 mg PO Q6H #30 tab 01/12/20 Docusate [Colace] 100 mg PO BID #20 capsule 01/12/20 oxyCODONE HCL [OxyIR] 5 mg PO Q4H PRN 3 Days #18 tab 01/12/20 Allergies Allergy/AdvReac Type Severity Reaction Status Date / Time cat dander Allergy Rash/Hives Verified 01/15/20 10:27 clarithromycin Allergy Unknown Verified 01/15/20 10:27 dog dander Allergy Rash/Hives Verified 01/15/20 10:27 egg Allergy Rash/Hives Verified 01/15/20 10:27 peanut Allergy Rash/Hives Verified 01/15/20 10:27 environmental Allergy Rash/Hives Uncoded 01/15/20 10:27 pet dander Allergy Rash/Hives Uncoded 01/15/20 10:27 Review of Systems ROS Statement: Those systems with pertinent positive or pertinent negative responses have been documented in the HPI. ROS Other: All systems not noted in ROS Statement are negative. Constitutional: Denies: fever, chills, weakness ENT: Reports: throat pain Respiratory: Denies: cough, dyspnea, wheezes Cardiovascular: Reports: chest pain. Denies: palpitations, orthopnea, edema, syncope Gastrointestinal: Reports: abdominal pain, nausea. Denies: vomiting, diarrhea, constipation Genitourinary: Denies: dysuria, hematuria Musculoskeletal: Denies: back pain Skin: Denies: rash Neurological: Reports: headache. Denies: weakness, numbness, paresthesias Psychiatric: Reports: anxiety Hematological/Lymphatic: Denies: easy bleeding Past Medical History Past Medical History: GERD/Reflux, Thyroid Disorder Additional Past Medical History / Comment(s): environmental allergies, pt states unable to swallow pills unless she opens them and takes them with applesauce, states taking liquid diet . History of Any Multi-Drug Resistant Organisms: None Reported Past Surgical History: Bariatric Surgery, Cholecystectomy, Hysterectomy, Tonsillectomy Additional Past Surgical History / Comment(s): lap band 2008 (Dr Friend)., c- section x2, Past Anesthesia/Blood Transfusion Reactions: No Reported Reaction Past Psychological History: No Psychological Hx Reported Smoking Status: Former smoker Past Alcohol Use History: None Reported Past Drug Use History: None Reported - Past Family History Mother Family Medical History: Cancer Additional Family Medical History / Comment(s): Leukemia and Breast Cancer General Exam Limitations: no limitations General appearance: alert, in no apparent distress, anxious Head exam: Present: atraumatic, normocephalic Eye exam: Present: normal appearance. Absent: scleral icterus, conjunctival injection ENT exam: Present: normal oropharynx Neck exam: Present: normal inspection Respiratory exam: Present: normal lung sounds bilaterally. Absent: respiratory distress, wheezes, rales, rhonchi, stridor Cardiovascular Exam: Present: regular rate, normal rhythm, normal heart sounds. Absent: systolic murmur, diastolic murmur, rubs, gallop GI/Abdominal exam: Present: soft, normal bowel sounds. Absent: distended, tenderness, guarding, rebound, rigid, mass, pulsatile mass Extremities exam: Present: normal inspection, normal capillary refill. Absent: pedal edema, calf tenderness Back exam: Present: normal inspection. Absent: CVA tenderness (R), CVA tenderness (L) Neurological exam: Present: alert Skin exam: Present: warm, dry, intact, normal color. Absent: rash Course Vital Signs 01/11/20 01/11/20 01:07 04:00 Temperature 99 F Pulse Rate 82 82 Respiratory 18 16 Rate Blood Pressure 125/83 137/64 O2 Sat by Pulse 98 98 Oximetry EKG Findings - EKG Comments: EKG Findings:: possible old anterior infarct. - EKG Results: EKG: interpreted by ASA, sinus rhythm (rate 67 bpm), normal axis, normal ST/T Medical Decision Making - Medical Decision Making the patient is 54-year-old womanwith chest and abdominal pain which has continued despite medical therapy. We'll admit patient for - Lab Data Result diagrams: 01/11/20 01:58 01/11/20 01:58 Lab Results 01/11/20 01/11/20 01/11/20 Range/Units 01:58 01:58 01:58 WBC 5.0 (3.8-10.6) k/uL RBC 4.78 (3.80-5.40) m/uL Hgb 14.6 (11.4-16.0) gm/dL Hct 45.4 (34.0-46.0) % MCV 94.9 (80.0-100.0) fL MCH 30.6 (25.0-35.0) pg MCHC 32.2 (31.0-37.0) g/dL RDW 12.9 (11.5-15.5) % Plt Count 268 (150-450) k/uL Neutrophils % 60 % Lymphocytes % 30 % Monocytes % 6 % Eosinophils % 2 % Basophils % 0 % Neutrophils # 3.0 (1.3-7.7) k/uL Lymphocytes # 1.5 (1.0-4.8) k/uL Monocytes # 0.3 (0-1.0) k/uL Eosinophils # 0.1 (0-0.7) k/uL Basophils # 0.0 (0-0.2) k/uL Sodium 137 (137-145) mmol/L Potassium 4.3 (3.5-5.1) mmol/L Chloride 107 (98-107) mmol/L Carbon Dioxide 23 (22-30) mmol/L Anion Gap 7 mmol/L BUN 6 L (7-17) mg/dL Creatinine 0.91 (0.52-1.04) mg/dL Est GFR (CKD-EPI)AfAm 83 (>60 ml/min/1.73 sqM) Est GFR (CKD-EPI)NonAf 72 (>60 ml/min/1.73 sqM) Glucose 109 H (74-99) mg/dL Calcium 9.6 (8.4-10.2) mg/dL Total Bilirubin 0.7 (0.2-1.3) mg/dL AST 31 (14-36) U/L ALT 19 (4-34) U/L Alkaline Phosphatase 89 (38-126) U/L Troponin I <0.012 (0.000-0.034) ng/mL Total Protein 7.1 (6.3-8.2) g/dL Albumin 4.1 (3.5-5.0) g/dL Amylase 83 (30-110) U/L Lipase 97 (23-300) U/L Disposition Clinical Impression: Abdominal pain Disposition: ADMITTED IP TO THIS HOSP Condition: Stable
[2020-01-11 02:21] LABS: Basophils % (A) 0 %; Eosinophils # (A) 0.1 k/uL (0-0.7); Eosinophils % (A) 2 %; HCT 45.4 % (34.0-46.0); HGB 14.6 gm/dL (11.4-16.0); Lymphocytes # (A) 1.5 k/uL (1.0-4.8); Lymphocytes % (A) 30 %; MCH 30.6 pg (25.0-35.0); MCHC 32.2 g/dL (31.0-37.0); MCV 94.9 fL (80.0-100.0); Mean Platelet Volume 6.8; Monocytes # (A) 0.3 k/uL (0-1.0); Monocytes % (A) 6 %; Neutrophils % (A) 60 %; Platelet Count 268 k/uL (150-450); RBC 4.78 m/uL (3.80-5.40); RDW 12.9 % (11.5-15.5)
[2020-01-11 02:22] LABS: Albumin 4.1 g/dL (3.5-5.0); Calcium 9.6 mg/dL (8.4-10.2); Potassium 4.3 mmol/L (3.5-5.1); Total Bilirubin 0.7 mg/dL (0.2-1.3); Total Protein 7.1 g/dL (6.3-8.2)
[2020-01-11] MEDS ORDERED: MORPHINE SULFATE 4 MG/ML SYRINGE IV STA (02:55)
[2020-01-11] MEDS ORDERED: fentaNYL (PF) 50 MCG/ML 2 ML AMP IV STA (03:25)
[2020-01-11] MEDS ORDERED: NALOXONE 0.4 MG/ML 1 ML VIAL IV PRN (04:14)
[2020-01-11] MEDS ORDERED: ACETAMINOPHEN TAB 325 MG TAB PO PRN (04:14)
[2020-01-11] MEDS ORDERED: HYDROmorphone 0.5 MG/0.5 ML SYRINGE IVP PRN (04:14)
[2020-01-11] MEDS ORDERED: ONDANSETRON 4 MG/2 ML VIAL IVP PRN (04:14)
[2020-01-11] MEDS ORDERED: MORPHINE SULFATE 4 MG/ML SYRINGE IV PRN (04:14)
[2020-01-11] MEDS ORDERED: MAG HYDROX/AL HYDROX/SIMETH 30 ML CUP PO PRN (04:14)
[2020-01-11] MEDS: SODIUM CHLORIDE 0.9% 1,000 ML IV SCH ×3 (04:34→21:30)
[2020-01-11] MEDS: LEVOTHYROXINE 137 MCG TAB PO SCH (05:30)
[2020-01-11] MEDS: MONTELUKAST 10 MG TAB PO SCH (08:31)
[2020-01-11] MEDS: FAMOTIDINE 20 MG TAB PO SCH ×2 (08:31→21:29)
[2020-01-11] MEDS ORDERED: SUCRALFATE 1 GM/10 ML PO SCH (09:00)
[2020-01-11] MEDS ORDERED: PANTOPRAZOLE 40 MG TABLET PO SCH ×2 (09:00→17:30)
[2020-01-11] MEDS ORDERED: PANTOPRAZOLE 40 MG/10 ML VIAL IVP SCH (09:00)
[2020-01-11] MEDS ORDERED: SUCRALFATE 1 GM TAB PO SCH (09:00)
--- NOTE | 2020-01-11 11:42 | P.GSCN ---
History of Present Illness Consult date: 01/11/20 History of present illness: CHIEF COMPLAINT: Abdominal pain and heartburn HISTORY OF PRESENT ILLNESS: This is a 54-year-old female with a known history of lap band placed in 2007, GERD, hypothyroidism, cholecystectomy, hysterectomy and . Patient has been to the ER 2 days in a row. Rarely she has been having upper abdominal pain and severe heartburn and indigestion. She reports that she feels that her chest is on fire from the indigestion. She was taking omeprazole, Pepcid and Tums at home with no improvement in her symptoms. Patient reports that she has been dealing with heartburn and abdominal discomfort for the last 6 weeks. She did go to see Dr. Friend 2 weeks ago and had 1 mL of fluid removed from her lap band. This did not improve her symptoms she returns to his office last and had all of the fluid completely removed from the lap band. Patient has still been dealing with symptoms underwent EGD on 01/04/2020 Results showing antral gastritis and mild esophagitis and no evidence of inflammation or erosion of the lap band. He is having significant acid reflux and regurg. She denies any fever chills or sweats. Denies any change in bowel habits. She's had poor oral intake. She reports any and all foods worsen her symptoms. PAST MEDICAL HISTORY: See list. PAST SURGICAL HISTORY: See list. MEDICATIONS: See list. ALLERGIES: See list. SOCIAL HISTORY: No illicit drug use. REVIEW OF SYSTEMS: CONSTITUTIONAL: Denies fever or chills. HEENT: Denies blurred vision, vision changes, or eye pain. Denies hemoptysis CARDIOVASCULAR: Denies chest pain or pressure. RESPIRATORY: No shortness of breath. GASTROINTESTINAL: See HPI for pertinent findings HEMATOLOGIC: Denies bleeding disorders. GENITOURINARY: Denies any blood in urine or increased urinary frequency. SKIN: Denies pruitis. Denies rash. PHYSICAL EXAM: VITAL SIGNS: Reviewed GENERAL: Well-developed in no acute distress. HEENT: No sclera icterus. Extraocular movements grossly intact. Moist buccal mucosa. Head is atraumatic, normocephalic. No nasal drainage. ABDOMEN: Soft. Nondistended. Mild epigastric discomfort with palpation NEUROLOGIC: Alert and oriented. Cranial nerves II through XII grossly intact. LABORATORY DATA: WBC 5.0 hemoglobin 14.6 platelets 268 creatinine 0.91 LFTs normal troponin normal lipase 96 IMAGING: Computed tomography scan of the abdomen without contrast shows no bowel obstruction. No ascites. No acute findings evident on noncontrast CT EKG normal sinus rhythm. Cannot rule out anterior infarct, age undetermined ASSESSMENT: 1. Abdominal pain with severe heartburn and indigestion 2. Lap band placed in 2007 3. History of GERD 4. Recent EGD showing antral gastritis and mild esophagitis and no evidence of inflammation or erosion of the lap band PLAN: -Patient scheduled for lap band removal for tomorrow with Dr. Friend -Continue IV Protonix 40 twice a day -Continue Maalox as needed -Continue Zofran as needed -continue the Carafate -Continue Pepcid 20 mg twice a day Physician Repossessor note has been reviewed by physician. Signing provider agrees with the documented findings, assessment, and plan of care. Past Medical History Past Medical History: GERD/Reflux, Thyroid Disorder Additional Past Medical History / Comment(s): environmental allergies, pt states unable to swallow pills unless she opens them and takes them with applesauce, states taking liquid diet . History of Any Multi-Drug Resistant Organisms: None Reported Past Surgical History: Bariatric Surgery, Cholecystectomy, Hysterectomy, Tonsillectomy Additional Past Surgical History / Comment(s): lap band 2007 (Dr Friend)., c- section x2, Past Anesthesia/Blood Transfusion Reactions: No Reported Reaction Past Psychological History: No Psychological Hx Reported Smoking Status: Former smoker Past Alcohol Use History: None Reported Past Drug Use History: None Reported - Past Family History Mother Family Medical History: Cancer Additional Family Medical History / Comment(s): Leukemia and Breast Cancer Medications and Allergies Home Medications Medication Instructions Recorded Confirmed Type estradioL [Estrace] 0.5 mg PO DAILY 09/05/18 01/11/20 History Albuterol Sulfate [Ventolin HFA] 2 puff INHALATION RT-Q4H PRN 01/10/20 01/11/20 History Cetirizine HCl [Children's 10 mg PO DAILY 01/10/20 01/11/20 History Cetirizine HCl] EPINEPHrine (Auto Inject) [Epipen] 0.3 mg IM ONCE PRN 01/10/20 01/11/20 History Famotidine [Pepcid] 20 mg PO DAILY 01/10/20 01/11/20 History Fluticasone Nasal [place] [Flonase 1 spr EA NOSTRIL BID 01/10/20 01/11/20 History Nasal [place]] Levothyroxine Sodium [Synthroid] 137 mcg PO DAILY 01/10/20 01/11/20 History Montelukast [Singulair] 10 mg PO DAILY 01/10/20 01/11/20 History Omeprazole 20 mg PO BID 01/10/20 01/11/20 History Sucralfate [Carafate] 1 gm PO BID #473 ml 01/10/20 01/11/20 Rx Allergies Allergy/AdvReac Type Severity Reaction Status Date / Time cat dander Allergy Rash/Hives Verified 01/11/20 06:35 clarithromycin Allergy Unknown Verified 01/11/20 06:35 dog dander Allergy Rash/Hives Verified 01/11/20 06:35 egg Allergy Rash/Hives Verified 01/11/20 06:35 peanut Allergy Rash/Hives Verified 01/11/20 06:35 environmental Allergy Rash/Hives Uncoded 01/11/20 06:35 pet dander Allergy Rash/Hives Uncoded 01/11/20 06:35 Surgical - Exam Vital Signs Temp Pulse Resp BP Pulse Ox 99 F 82 18 125/83 98 01/11/20 01:07 01/11/20 01:07 01/11/20 01:07 01/11/20 01:07 01/11/20 01:07 Results - Labs 01/11/20 01:58 01/11/20 01:58 Abnormal Lab Results - Last 24 Hours (Table) 01/11/20 Range/Units 01:58 BUN 6 L (7-17) mg/dL Glucose 109 H (74-99) mg/dL Diabetes panel 01/11/20 Range/Units 01:58 Sodium 137 (137-145) mmol/L Potassium 4.3 (3.5-5.1) mmol/L Chloride 107 (98-107) mmol/L Carbon Dioxide 23 (22-30) mmol/L BUN 6 L (7-17) mg/dL Creatinine 0.91 (0.52-1.04) mg/dL Glucose 109 H (74-99) mg/dL Calcium 9.6 (8.4-10.2) mg/dL AST 31 (14-36) U/L ALT 19 (4-34) U/L Alkaline Phosphatase 89 (38-126) U/L Total Protein 7.1 (6.3-8.2) g/dL Albumin 4.1 (3.5-5.0) g/dL Calcium panel 01/11/20 Range/Units 01:58 Calcium 9.6 (8.4-10.2) mg/dL Albumin 4.1 (3.5-5.0) g/dL Pituitary panel 01/11/20 Range/Units 01:58 Sodium 137 (137-145) mmol/L Potassium 4.3 (3.5-5.1) mmol/L Chloride 107 (98-107) mmol/L Carbon Dioxide 23 (22-30) mmol/L BUN 6 L (7-17) mg/dL Creatinine 0.91 (0.52-1.04) mg/dL Glucose 109 H (74-99) mg/dL Calcium 9.6 (8.4-10.2) mg/dL Adrenal panel 01/11/20 Range/Units 01:58 Sodium 137 (137-145) mmol/L Potassium 4.3 (3.5-5.1) mmol/L Chloride 107 (98-107) mmol/L Carbon Dioxide 23 (22-30) mmol/L BUN 6 L (7-17) mg/dL Creatinine 0.91 (0.52-1.04) mg/dL Glucose 109 H (74-99) mg/dL Calcium 9.6 (8.4-10.2) mg/dL Total Bilirubin 0.7 (0.2-1.3) mg/dL AST 31 (14-36) U/L ALT 19 (4-34) U/L Alkaline Phosphatase 89 (38-126) U/L Total Protein 7.1 (6.3-8.2) g/dL Albumin 4.1 (3.5-5.0) g/dL
[2020-01-11] MEDS: CALCIUM CARBONATE LIQUID 500 MG/5 ML CUP PO SCH ×3 (13:13→20:16)
[2020-01-11] MEDS ORDERED: ACETAMINOPHEN IV (For NPO) 1,000 MG in EMPTY BAG 1 BAG IVPB ONE ×2 (14:00→20:30)
--- NOTE | 2020-01-11 16:29 | P.HPIM ---
History of Present Illness H&P Date: 01/11/20 Chief Complaint: Heartburn History of presenting complaint: This is a 54-year-old patient of Dr. todd from [place]. Chronic stable medical conditions include hypothyroid, environmental ALLERGIES, obesity. Patient for close to 6 weeks has been having symptoms as described below. After eating she gets bloating sensation in the upper epigastrium and also develops se hever heartburn. She gets a burning sensation up to the ears to throat sensation goes down the arms and the back. About 4 weeks ago she was started on omeprazole 20 mg twice a day. Patient on January [address] Friend and had the fluid taken out of for lap band. Some gastritis was noted. She is been not been able to eat fairly well for last 4-6 weeks. Feels really distraught. The lab and she lost about 150 pounds that she put back on about 60 pounds. Denies any cardiac history. All the symptoms are primarily related to eating. Review of systems: GEN.: Tired EYES: None HEENT: None NECK: None RESPIRATORY: None CARDIOVASCULAR: None GASTROINTESTINAL: As above GENITOURINARY: None MUSCULOSKELETAL: None LYMPHATICS: None HEMATOLOGICAL: None PSYCHIATRY: Anxious NEUROLOGICAL: None Past medical history to include: GERD, hypothyroid, environmental ALLERGIES, trouble swallowing pills,. Lap banding [address] Friend. 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 . Patient smoked for about 10 years stopped in 1999. Smoked a pack a day. No alcohol. Physical examination: VITAL SIGNS: 98.5, 68, 18, 124/78, 99% room air GENERAL:. BMI 36, sitting on bed, uncomfortable, anxious. EYES: Pupils equal. Conjunctiva normal. HEENT: External appearance of nose and ears normal, oral cavity grossly normal. NECK: JVD not raised; masses not palpable. HEART: First and second heart sounds are normal; no edema. LUNGS: Respiratory rate normal; clear to auscultation. ABDOMEN: Soft, mild epigastric tenderness, liver spleen not palpable, no masses palpable. PSYCH: Alert and oriented x3; mood and affect anxious l. NEUROLOGICAL: Cranial nerves grossly intact; no facial asymmetry, power and sensation grossly intact. LYMPHATICS: No lymph nodes palpable in the axilla and neck INVESTIGATIONS, reviewed in the clinical context: White count 5 hemoglobin 14.6 platelets 268 potassium 4.3 creatinine 0.91 Troponin I 2 EKG tracing personally reviewed by me-sinus rhythm, poor R-wave progression Assessment: -This is a patient who had a lap band placed in 2007. Lasix 6070 progressively worsening symptoms of reflux. Gets a bloating sensation after eating food. Did have an EGD did not show any major abnormality except for some slight gastritis. Patient definitely has exacerbated reflux symptoms. Not responding well to outpatient treatment. Possibly dysfunctional lap band. -Obesity BMI 36.0 -Severe GERD -Acute on chronic gastritis possibly esophagitis -Possibly a cervical spasm from esophagitis -Hypothyroid -Seasonal ALLERGIES Plan: Care was discussed with the patient. Unlikely cardiac presentation. With gynecology opinion. Do a 2-D echocardiogram. Troponins are negative. Home medications resumed. The patient on a PPI. DC Carafate no role at this present time. Patient may benefit from removal of lap band. We'll let Dr. Friend determined the same. Care was discussed with the patient question also. Do a plain chest x-ray Past Medical History Past Medical History: GERD/Reflux, Thyroid Disorder Additional Past Medical History / Comment(s): environmental allergies, pt states unable to swallow pills unless she opens them and takes them with applesauce, states taking liquid diet . History of Any Multi-Drug Resistant Organisms: None Reported Past Surgical History: Bariatric Surgery, Cholecystectomy, Hysterectomy, Tonsillectomy Additional Past Surgical History / Comment(s): lap band 2007 (Dr Friend)., c- section x2, Past Anesthesia/Blood Transfusion Reactions: No Reported Reaction Past Psychological History: No Psychological Hx Reported Smoking Status: Former smoker Past Alcohol Use History: None Reported Past Drug Use History: None Reported - Past Family History Mother Family Medical History: Cancer Additional Family Medical History / Comment(s): Leukemia and Breast Cancer Medications and Allergies Home Medications Medication Instructions Recorded Confirmed Type estradioL [Estrace] 0.5 mg PO DAILY 09/05/18 01/11/20 History Albuterol Sulfate [Ventolin HFA] 2 puff INHALATION RT-Q4H PRN 01/10/20 01/11/20 History Cetirizine HCl [Children's 10 mg PO DAILY 01/10/20 01/11/20 History Cetirizine HCl] EPINEPHrine (Auto Inject) [Epipen] 0.3 mg IM ONCE PRN 01/10/20 01/11/20 History Famotidine [Pepcid] 20 mg PO DAILY 01/10/20 01/11/20 History Fluticasone Nasal [place] [Flonase 1 spr EA NOSTRIL BID 01/10/20 01/11/20 History Nasal [place]] Levothyroxine Sodium [Synthroid] 137 mcg PO DAILY 01/10/20 01/11/20 History Montelukast [Singulair] 10 mg PO DAILY 01/10/20 01/11/20 History Omeprazole 20 mg PO BID 01/10/20 01/11/20 History Sucralfate [Carafate] 1 gm PO BID #473 ml 01/10/20 01/11/20 Rx Allergies Allergy/AdvReac Type Severity Reaction Status Date / Time cat dander Allergy Rash/Hives Verified 01/11/20 06:35 clarithromycin Allergy Unknown Verified 01/11/20 06:35 dog dander Allergy Rash/Hives Verified 01/11/20 06:35 egg Allergy Rash/Hives Verified 01/11/20 06:35 peanut Allergy Rash/Hives Verified 01/11/20 06:35 environmental Allergy Rash/Hives Uncoded 01/11/20 06:35 pet dander Allergy Rash/Hives Uncoded 01/11/20 06:35 Physical Exam Vitals: Vital Signs Temp Pulse Pulse Resp BP BP Pulse Ox 01/11/20 08:56 98.3 F 74 14 135/77 100 01/11/20 05:02 98.5 F 68 18 124/78 99 01/11/20 04:00 82 16 137/64 98 01/11/20 01:07 99 F 82 18 125/83 98 Intake and Output 01/10/20 01/11/20 01/11/20 22:59 06:59 14:59 Intake Total 100 Balance 100 Intake: Intake, IV Titration 100 Amount Sodium Chloride 0.9% 1, 100 000 ml @ 100 mls/hr IV . Q10H CINDI Rx#:[id number] Other: Voiding Method Toilet # Voids 1 1 Weight 104.326 kg Results CBC & Chem 7: 01/11/20 01:58 01/11/20 01:58 Labs: Abnormal Lab Results - Last 24 Hours (Table) 01/11/20 Range/Units 01:58 BUN 6 L (7-17) mg/dL Glucose 109 H (74-99) mg/dL Thrombosis Risk Factor Assmnt - Choose All That Apply Any of the Below Risk Factors Present?: Yes Each Factor Represents 1 point: Age 41-60 years, Obesity (BMI >25) Other Risk Factors: No Other congenital or acquired thrombophilia - If yes, enter type in comment: No Thrombosis Risk Factor Assessment Total Risk Factor Score: 2 Thrombosis Risk Factor Assessment Level: Low Risk
[2020-01-11] MEDS: PANTOPRAZOLE 40 MG/10 ML VIAL IVP SCH (16:54)
[2020-01-12] MEDS: SODIUM CHLORIDE 0.9% 1,000 ML IV SCH ×2 (06:19→12:29)
[2020-01-12] MEDS: LEVOTHYROXINE 137 MCG TAB PO SCH (06:19)
[2020-01-12] MEDS: PANTOPRAZOLE 40 MG/10 ML VIAL IVP SCH (06:23)
[2020-01-12] MEDS: CALCIUM CARBONATE LIQUID 500 MG/5 ML CUP PO SCH ×2 (07:18→11:54)
[2020-01-12] MEDS: FAMOTIDINE 20 MG TAB PO SCH (07:18)
[2020-01-12] MEDS: MONTELUKAST 10 MG TAB PO SCH (07:18)
[2020-01-12] MEDS ORDERED: SODIUM CHLORIDE 0.9% 1,000 ML IV ONE (09:33)
--- NOTE | 2020-01-12 10:00 | ECHOF ---
Referral Reason:chest pain MEASUREMENTS -------- HEIGHT: 170.2 cm WEIGHT: 104.3 kg BP: RVIDd: 2.4 cm (< 3.3) IVSd: 1.0 cm (0.6 - 1.1) LVIDd: 5.1 cm (3.9 - 5.3) LVPWd: 1.1 cm (0.6 - 1.1) IVSs: 1.1 cm LVIDs: 3.8 cm LVPWs: 1.5 cm LAESV Index (A-L): 24.04 ml/m Ao Diam: 3.1 cm (2.0 - 3.7) AV Cusp: 1.5 cm (1.5 - 2.6) MV EXCURSION: 18.048 mm (> 18.000) MV EF SLOPE: 84 mm/s (70 - 150) EPSS: 0.5 cm MV E Pedro: 0.75 m/s MV DecT: 216 ms MV A Pedro: 0.85 m/s MV E/A Ratio: 0.88 RAP: 5.00 mmHg RVSP: 26.90 mmHg FINDINGS -------- Sinus rhythm. This was a technically good study. LV size, wall thickness and systolic function are normal, with an EF greater than 55%. The left whitney tricular size is normal. The right ventricle is normal in size. The left atrial size is normal. The right atrial size is normal. The aortic valve is trileaflet, and appears structurally normal. No aortic stenosis or regurgitation. Mild mitral regurgitation is present. Mild tricuspid regurgitation present. Right ventricular systolic pressure is normal at < 35 mmHg. There is no pulmonic regurgitation present. The aortic root size is normal. There is no pericardial effusion. CONCLUSIONS -------- 1. LV size, wall thickness and systolic function are normal, with an EF greater than 55%. 2. The left ventricular size is normal. 3. The right ventricle is normal in size. 4. The left atrial size is normal. 5. The right atrial size is normal. 6. Mild mitral regurgitation is present. 7. Mild tricuspid regurgitation present. 8. There is no pulmonic regurgitation present. 9. The aortic root size is normal. 10. There is no pericardial effusion. CAFETERIA COOK: Cydney Weiss RDCS
[2020-01-12] MEDS ORDERED: ONDANSETRON 4 MG/2 ML VIAL IVP ONE (10:07)
[2020-01-12] MEDS ORDERED: FAMOTIDINE 20 MG/2 ML VIAL IVP ONE (10:08)
[2020-01-12] MEDS ORDERED: DEXAMETHASONE SOD PHOSPHATE 10 MG/ML 1 ML VIAL IV ONE (10:09)
[2020-01-12] MEDS ORDERED: MIDAZOLAM 2 MG/2 ML VIAL ONE (10:55)
[2020-01-12] MEDS ORDERED: PROPOFOL 10 MG/ML 20 ML VIAL IV ONE (10:55)
[2020-01-12] MEDS ORDERED: SUCCINYLCHOLINE CHLORIDE 100 MG/5 ML SYR IV ONE (10:55)
[2020-01-12] MEDS ORDERED: HYDROmorphone (PF) 1 MG/ML ONE (10:55)
[2020-01-12] MEDS ORDERED: NEOSTIGMINE 1 MG/ML 10 ML VIAL ONE (10:55)
[2020-01-12] MEDS ORDERED: GLYCOPYRROLATE 0.2 MG/ML 2 ML VIAL ONE (10:55)
[2020-01-12] MEDS ORDERED: LIDOCAINE 1% INJ 10MG/ML (20 ML MDV) ONE (10:55)
[2020-01-12] MEDS ORDERED: ROCURONIUM 10 MG/ML (10 ML VIAL) IV ONE (10:55)
[2020-01-12] MEDS ORDERED: fentaNYL (PF) 50 MCG/ML 2 ML AMP ONE (10:55)
[2020-01-12] MEDS ORDERED: ceFAZolin 1,000 MG VIAL IVPB ONE (11:12)
[2020-01-12] MEDS ORDERED: BUPIVACAINE (PF) 0.5% 30 ML VIAL SQ ONE (11:21)
--- NOTE | 2020-01-12 11:46 | P.OP ---
Date of Procedure: 01/12/20 Preoperative Diagnosis: GERD Postoperative Diagnosis: GERD Procedure(s) Performed: Laparoscopic removal of LAP-BAND system Anesthesia: MARA Surgeon: Oneil Friend Estimated Blood Loss (ml): 10 Pathology: none sent Condition: stable Disposition: PACU Description of Procedure: The patient's placed on the operative table in supine position. She received general anesthesia. She was then placed in dorsal lithotomy position. Her abdomen was prepped and draped usual sterile fashion. The skin incision sites were anesthetized with 1% local Xylocaine. The skin was incised at the port site. And then using electrocautery the LAP-BAND port was dissected free. The PEG tube was then cut and the port was removed from patient. Next using a 5 mm optical trocar under direct visualization panel cavity was entered. The abdomen was insufflated after adequate insufflation the laparoscope placed back the pleural cavity. Next a fibrillar trocar is placed in the left and right epigastric position. And then another 5 mm trochars placed in the left periumbilical position another fibrillar trocar was placed in the right lateral position and the original 5 mm trocar was exchanged for a 15 mm trocar. The left lateral lobe liver was retracted and then the LAP-BAND was seen. The adhesions Dorinda device were then cut using left cautery. The LAP-BAND device then cut and withdrawn from around stomach. The LAP-BAND was then withdrawn through the 15 mm trocar site. There is no evidence of any injury to the stomach or esophagus. At this point the trochars withdrawn. The skin was then closed interrupted 3-0 Monocryl suture. Dermabond was applied. Patient top she will was sent to recovery in stable condition.
[2020-01-12] MEDS ORDERED: HYDROmorphone 1 MG/ML 1 ML SYRINGE IVP PRN (11:48)
[2020-01-12 11:56] VITALS: TEMP 97
[2020-01-12 12:45] VITALS: PULSE 64
--- NOTE | 2020-01-12 12:52 | P.CRDCN ---
History of Present Illness Consult date: 01/12/20 History of present illness: CHIEF COMPLAINT: Chest pain HISTORY OF PRESENT ILLNESS: This is a 54-year old female with a past medical history significant for GERD, hypothyroidism, and lap band in 2007. 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 We have been asked to see the patient in consultation for chest pain. Patient examined this morning at the bedside. She reports having severe heartburn over the past few days. She has been taking prescribed reflux medications and also OTC medications with little relief. She denies chest pain or pressure. Denies shortness of breath. Denies any dizziness or lightheadedness. She denies a family history of cardiac disease. Patient reports she used to be a smoker but quit 20 years ago. DIAGNOSTICS: EKG reveals sinus rhythm with no acute signs of ischemia Laboratory data: WBC 5.0. Hemoglobin 14.6. Bili count 268. Sodium 137. Potassium 4.3. BUN 6. Creatinine 0.91. Troponin negative 3 Current home cardiac medications include none Echocardiogram reveals ejection fraction greater than 55%, mild mitral regurgitation, and mild tricuspid regurgitation REVIEW OF SYSTEMS: At the time of my exam: CONSTITUTIONAL: Denies fever or chills. HEENT: Denies blurred vision, vision changes, or eye pain. Denies hemoptysis CARDIOVASCULAR: Denies chest pain, orthopnea, PND or palpitations RESPIRATORY: No shortness of breath. GASTROINTESTINAL: Denies abdominal pain. Denies nausea or vomiting. HEMATOLOGIC: Denies bleeding disorders. GENITOURINARY: Denies any blood in urine. SKIN: Denies pruitis. Denies rash. PHYSICAL EXAM: VITAL SIGNS: Reviewed. GENERAL: Well-developed in no acute distress. HEENT: Head is normocephalic. Pupils are equal, round. Sclerae anicteric. Mucous membranes of the mouth are moist. Neck supple. No JVD or thyromegaly LUNGS: Respirations even and unlabored. Lungs essentially clear to auscultation bilaterally. HEART: Regular rate and rhythm. S1 and S2 heard. ABDOMEN: Soft. Nondistended. Nontender. EXTREMITIES: Normal range of motion. No clubbing or cyanosis. Peripheral pulses intact. No lower extremity edema NEUROLOGIC: Awake and alert. Oriented x 3. ASSESSMENT: Epigastric discomfort GERD Hypothyroidism PLAN: An acute coronary event has been ruled out Patient's discomfort appears to be related to her severe GERD. She is scheduled to undergo lap band removal today with Dr. Friend Nurse practitioner note has been reviewed by physician. Signing provider agrees with the documented findings, assessment, and plan of care. Past Medical History Past Medical History: GERD/Reflux, Thyroid Disorder Additional Past Medical History / Comment(s): environmental allergies, pt states unable to swallow pills unless she opens them and takes them with applesauce, states taking liquid diet . History of Any Multi-Drug Resistant Organisms: None Reported Past Surgical History: Bariatric Surgery, Cholecystectomy, Hysterectomy, Tonsillectomy Additional Past Surgical History / Comment(s): lap band 2007 (Dr Friend)., c- section x2, Past Anesthesia/Blood Transfusion Reactions: No Reported Reaction Past Psychological History: No Psychological Hx Reported Smoking Status: Former smoker Past Alcohol Use History: None Reported Past Drug Use History: None Reported - Past Family History Mother Family Medical History: Cancer Additional Family Medical History / Comment(s): Leukemia and Breast Cancer Medications and Allergies Home Medications Medication Instructions Recorded Confirmed Type estradioL [Estrace] 0.5 mg PO DAILY 09/05/18 01/11/20 History Albuterol Sulfate [Ventolin HFA] 2 puff INHALATION RT-Q4H PRN 01/10/20 01/11/20 History Cetirizine HCl [Children's 10 mg PO DAILY 01/10/20 01/11/20 History Cetirizine HCl] EPINEPHrine (Auto Inject) [Epipen] 0.3 mg IM ONCE PRN 01/10/20 01/11/20 History Fluticasone Nasal [place] [Flonase 1 spr EA NOSTRIL BID 01/10/20 01/11/20 History Nasal [place]] Levothyroxine Sodium [Synthroid] 137 mcg PO DAILY 01/10/20 01/11/20 History Montelukast [Singulair] 10 mg PO DAILY 01/10/20 01/11/20 History Omeprazole 20 mg PO BID 01/10/20 01/11/20 History Acetaminophen Tab [Tylenol] 650 mg PO Q6H #30 tab 01/12/20 Rx Docusate [Colace] 100 mg PO BID #20 capsule 01/12/20 Rx oxyCODONE HCL [OxyIR] 5 mg PO Q4H PRN 3 Days #18 tab 01/12/20 Rx Allergies Allergy/AdvReac Type Severity Reaction Status Date / Time cat dander Allergy Rash/Hives Verified 01/11/20 06:35 clarithromycin Allergy Unknown Verified 01/11/20 06:35 dog dander Allergy Rash/Hives Verified 01/11/20 06:35 egg Allergy Rash/Hives Verified 01/11/20 06:35 peanut Allergy Rash/Hives Verified 01/11/20 06:35 environmental Allergy Rash/Hives Uncoded 01/11/20 06:35 pet dander Allergy Rash/Hives Uncoded 01/11/20 06:35 Physical Exam Vitals: Vital Signs Temp Pulse Pulse Resp BP Pulse Ox 01/12/20 12:20 57 L 16 146/77 100 01/12/20 12:05 68 16 144/79 100 01/12/20 11:50 97 F L 78 14 158/83 99 01/12/20 09:41 98.7 F 70 20 148/83 97 01/12/20 08:02 98.3 F 66 14 125/77 98 01/12/20 03:00 98.2 F 69 16 120/84 95 01/11/20 19:15 98.1 F 62 16 113/61 98 01/11/20 14:07 98.4 F 65 14 121/81 98 Intake and Output 01/11/20 01/12/20 01/12/20 22:59 06:59 14:59 Intake Total 1050 Output Total 10 Balance 1040 Intake: IV 1050 Output: Estimated Blood Loss 10 Other: Voiding Method Toilet Toilet Toilet # Voids 1 1 1 Results 01/11/20 01:58 01/11/20 01:58 Cardiac Enzymes 01/11/20 01/11/20 Range/Units 15:45 18:09 Troponin I <0.012 <0.012 (0.000-0.034) ng/mL Current Medications Generic Name Dose Route Start Last Admin Trade Name Freq PRN Reason Stop Dose Admin Acetaminophen 650 mg 01/11/20 04:14 Acetaminophen Tab 325 Mg Tab PO Q6HR PRN Mild Pain or Fever > 100.5 Al Hydroxide/Mg Hydroxide 15 ml 01/11/20 04:14 01/11/20 22:04 Mag Hydrox/Al Hydrox/Simeth 30 Ml Cup PO 15 ml Q6HR PRN Administration Indigestion Calcium Carbonate/Glycine 500 mg 01/11/20 12:48 10/30/20 11:54 Calcium Carbonate Liquid 500 Mg/5 Ml Cup PO Not Given ACHS CINDI Famotidine 20 mg 01/11/20 09:00 01/12/20 07:18 Famotidine 20 Mg Tab PO Not Given BID CINDI Hydromorphone HCl 1 mg 01/12/20 11:48 Hydromorphone 1 Mg/Ml 1 Ml Syringe IVP Q3HR PRN Pain Sodium Chloride 1,000 mls @ 125 mls/hr 01/11/20 04:15 01/12/20 12:29 Saline 0.9% IV 50 mls .Q8H CINDI Administration Levothyroxine Sodium 137 mcg 01/11/20 06:30 01/12/20 06:19 Levothyroxine 137 Mcg Tab PO Not Given DAILY@0630 CINDI Montelukast Sodium 10 mg 01/11/20 09:00 01/12/20 07:18 Montelukast 10 Mg Tab PO Not Given DAILY CINDI Naloxone HCl 0.2 mg 01/11/20 04:14 Naloxone 0.4 Mg/Ml 1 Ml Vial IV Q2M PRN Opioid Reversal Ondansetron HCl 4 mg 01/11/20 04:14 Ondansetron 4 Mg/2 Ml Vial IVP Q8HR PRN Nausea And Vomiting Pantoprazole Sodium 40 mg 01/11/20 21:00 01/12/20 06:23 Pantoprazole 40 Mg/10 Ml Vial IVP 40 mg BID CINDI Administration Intake and Output 01/11/20 01/12/20 01/12/20 22:59 06:59 14:59 Intake Total 1050 Output Total 10 Balance 1040 Intake: IV 1050 Output: Estimated Blood Loss 10 Other: Voiding Method Toilet Toilet Toilet # Voids 1 1 1 01/11/20 01:58 01/11/20 01:58
[2020-01-12 14:22] VITALS: BP 127/75; RESP 14
--- NOTE | 2020-01-12 23:20 | P.DS ---
Providers Date of admission: 01/11/20 04:15 Expected date of discharge: 01/12/20 Attending physician: Roberto Segura Consults: 01/11/20 07:15 Consult Physician Routine Consulting Provider: Oneil Friend Consult Reason/Comments: abdominal pain n/v Do you want consulting provider notified?: Yes Primary care physician: Len Silva [facility] Course: Chief Complaint: Heartburn History of presenting complaint: This is a 54-year-old patient of Dr. silva from [place]. Chronic stable medical conditions include hypothyroid, environmental ALLERGIES, obesity. Patient for close to 6 weeks has been having symptoms as described below. After eating she gets bloating sensation in the upper epigastrium and also develops severe heartburn. She gets a burning sensation up to the ears to throat sensation goes down the arms and the back. About 4 weeks ago she was started on omeprazole 20 mg twice a day. Patient on January [address] Friend and had the fluid taken out of for lap band. Some gastritis was noted. She is been not been able to eat fairly well for last 4-6 weeks. Feels really distraught. The lab and she lost about 150 pounds that she put back on about 60 pounds. Denies any cardiac history. All the symptoms are primarily related to eating. today-Dr. Friend account thethe LAP-BAND.which is felt to be causing the symptoms. Discussed with Dr. Friend. DC. continue with PPI. Carafate discontinued. Consultation: Dr. Friend from general surgery Dr. Yo from cardiology Physical examination: VITAL SIGNS: 64, 14, 04[birth year]1974, 98% room air HEART: First and second heart sounds are normal; no edema. LUNGS: Respiratory rate normal; clear to auscultation. INVESTIGATIONS, reviewed in the clinical context: White count 5 hemoglobin 14.6 platelets 268 potassium 4.3 creatinine 0.91 Troponin I 2 EKG tracing personally reviewed by me-sinus rhythm, poor R-wave progression Assessment: - Possibly dysfunctional lap band.causing worsening of current symptoms. Now removed. -Obesity BMI 36.0 -Severe GERD, POA -Acute on chronic gastritis possibly esophagitis -Possibly esophageal spasm from esophagitis -Hypothyroid -Seasonal ALLERGIES disposition: Home Patient Condition at Discharge: Stable Plan - Discharge Summary Discharge Rx Participant: No New Discharge Prescriptions: New Docusate [Colace] 100 mg PO BID #20 capsule oxyCODONE HCL [OxyIR] 5 mg PO Q4H PRN 3 Days #18 tab PRN Reason: Pain Acetaminophen Tab [Tylenol] 650 mg PO Q6H #30 tab Continue estradioL [Estrace] 0.5 mg PO DAILY Omeprazole 20 mg PO BID Montelukast [Singulair] 10 mg PO DAILY Albuterol Sulfate [Ventolin HFA] 2 puff INHALATION RT-Q4H PRN PRN Reason: Shortness Of Breath Levothyroxine Sodium [Synthroid] 137 mcg PO DAILY Fluticasone Nasal [place] [Flonase Nasal [place]] 1 spr EA NOSTRIL BID EPINEPHrine (Auto Inject) [Epipen] 0.3 mg IM ONCE PRN PRN Reason: Anaphylaxis Cetirizine HCl [Children's Cetirizine HCl] 10 mg PO DAILY Discontinued Famotidine [Pepcid] 20 mg PO DAILY Sucralfate [Carafate] 1 gm PO BID #473 ml Discharge Medication List estradioL [Estrace] 0.5 mg PO DAILY 09/05/18 [History] Albuterol Sulfate [Ventolin HFA] 2 puff INHALATION RT-Q4H PRN 01/10/20 [History] Cetirizine HCl [Children's Cetirizine HCl] 10 mg PO DAILY 01/10/20 [History] EPINEPHrine (Auto Inject) [Epipen] 0.3 mg IM ONCE PRN 01/10/20 [History] Fluticasone Nasal [place] [Flonase Nasal [place]] 1 spr EA NOSTRIL BID 01/10/20 [History] Levothyroxine Sodium [Synthroid] 137 mcg PO DAILY 01/10/20 [History] Montelukast [Singulair] 10 mg PO DAILY 01/10/20 [History] Omeprazole 20 mg PO BID 01/10/20 [History] Acetaminophen Tab [Tylenol] 650 mg PO Q6H #30 tab 01/12/20 [Rx] Docusate [Colace] 100 mg PO BID #20 capsule 01/12/20 [Rx] oxyCODONE HCL [OxyIR] 5 mg PO Q4H PRN 3 Days #18 tab 01/12/20 [Rx] Follow up Appointment(s)/Referral(s): Len Silva MD [Primary Care Provider] [facility] [place] [place] [facility] - 1 Week Oneil Friend MD [STAFF PHYSICIAN] - 1 Week Patient Instructions/Handouts: Adjustable Gastric Band Removal (DC) Discharge Disposition: HOME SELF-CARE
== END 2020-01-12 15:48 | disposition home or self-care (01) ==
LOC: EC 01:05 → 1SOBS 04:15
PROVIDERS: ADMIT Hospitalist; ATTEND Hospitalist
DX: K29.00 Acute gastritis without bleeding (principal); Z98.84 Bariatric surgery status; K30 Functional dyspepsia; K21.00 Gastro-esophageal reflux disease with esophagitis, without bleeding; R13.10 Dysphagia, unspecified; K29.50 Unspecified chronic gastritis without bleeding; E03.9 Hypothyroidism, unspecified; J30.2 Other seasonal allergic rhinitis; I08.1 Rheumatic disorders of both mitral and tricuspid valves; E66.9 Obesity, unspecified; Z68.36 Body mass index [BMI] 36.0-36.9, adult; Z88.1 Allergy status to other antibiotic agents; Z91.012 Allergy to eggs; Z91.010 Allergy to peanuts; Z91.048 Other nonmedicinal substance allergy status; Z79.890 Hormone replacement therapy; Z79.818 Long term (current) use of other agents affecting estrogen receptors and estrogen levels; Z79.899 Other long term (current) drug therapy; Z87.891 Personal history of nicotine dependence; Z90.49 Acquired absence of other specified parts of digestive tract; Z98.891 History of uterine scar from previous surgery; Z90.710 Acquired absence of both cervix and uterus; Z80.3 Family history of malignant neoplasm of breast; Z80.6 Family history of leukemia
CPT/HCPCS: 96365; 96375 ×2; 96376 ×2; 99285; 36415; 93005; 93306; 80053; 82150; 83690; 84484; 85025; 43774; G0378 ×2; J2250; J2270; J1100; J2710; J2405; J0690; J2001; J3010; J1170; J0131; J0330; J2704; C9113 ×2

== ENCOUNTER 2020-01-14 20:06 | Emergency (ER) | payer BC ==
[2020-01-14 20:14] VITALS: BP 130/100; PULSE 83; RESP 18; TEMP 98
--- NOTE | 2020-01-14 20:35 | ED ---
General Adult HPI - General Chief complaint: Nausea/Vomiting/Diarrhea Stated complaint: Post Op - Acid Reflux Time Seen by Provider: 01/14/20 20:17 Source: patient Mode of arrival: ambulatory Limitations: no limitations - History of Present Illness Initial comments: 54-year-old female presenting to emergency Department with a chief complaint of acid reflux. Patient states she had a lap band removal by 2 days ago. Patient states she's been attempting to keep down her antacids and omeprazole by taking it with applesauce a small amounts of liquid. Patient states she feels like it is getting stuck in the distal esophagus but then gradually goes through the stomach. Patient states today, she has not been able to do that and has not been able to take her PPI and antacids. Patient states now she has a burning sensation going in the esophagus and her acid reflux is getting bad. She called the surgeon's office who advised her to come to the ED for a GI cocktail and evaluation. - Related Data Home Medications Medication Instructions Recorded Confirmed estradioL [Estrace] 0.5 mg PO DAILY 09/05/18 01/11/20 Albuterol Sulfate [Ventolin HFA] 2 puff INHALATION RT-Q4H PRN 01/10/20 01/11/20 Cetirizine HCl [Children's 10 mg PO DAILY 01/10/20 01/11/20 Cetirizine HCl] EPINEPHrine (Auto Inject) [Epipen] 0.3 mg IM ONCE PRN 01/10/20 01/11/20 Fluticasone Nasal [place] [Flonase 1 spr EA NOSTRIL BID 01/10/20 01/11/20 Nasal [place]] Levothyroxine Sodium [Synthroid] 137 mcg PO DAILY 01/10/20 01/11/20 Montelukast [Singulair] 10 mg PO DAILY 01/10/20 01/11/20 Omeprazole 20 mg PO BID 01/10/20 01/11/20 Previous Rx's Medication Instructions Recorded Acetaminophen Tab [Tylenol] 650 mg PO Q6H #30 tab 01/12/20 Docusate [Colace] 100 mg PO BID #20 capsule 01/12/20 oxyCODONE HCL [OxyIR] 5 mg PO Q4H PRN 3 Days #18 tab 01/12/20 Allergies Allergy/AdvReac Type Severity Reaction Status Date / Time cat dander Allergy Rash/Hives Verified 01/14/20 20:14 clarithromycin Allergy Unknown Verified 01/14/20 20:14 dog dander Allergy Rash/Hives Verified 01/14/20 20:14 egg Allergy Rash/Hives Verified 01/14/20 20:14 peanut Allergy Rash/Hives Verified 01/14/20 20:14 environmental Allergy Rash/Hives Uncoded 01/14/20 20:14 pet dander Allergy Rash/Hives Uncoded 01/14/20 20:14 Review of Systems ROS Statement: Those systems with pertinent positive or pertinent negative responses have been documented in the HPI. ROS Other: All systems not noted in ROS Statement are negative. Past Medical History Past Medical History: GERD/Reflux, Thyroid Disorder Additional Past Medical History / Comment(s): environmental allergies, pt states unable to swallow pills unless she opens them and takes them with applesauce, states taking liquid diet . History of Any Multi-Drug Resistant Organisms: None Reported Past Surgical History: Bariatric Surgery, Cholecystectomy, Hysterectomy, Tonsillectomy Additional Past Surgical History / Comment(s): lap band 2008 (Dr Schuster)., c- section x2, lap band removal 01/12/2020 Dr schuster. Past Anesthesia/Blood Transfusion Reactions: No Reported Reaction Past Psychological History: No Psychological Hx Reported Smoking Status: Former smoker Past Alcohol Use History: None Reported Past Drug Use History: None Reported - Past Family History Mother Family Medical History: Cancer Additional Family Medical History / Comment(s): Leukemia and Breast Cancer General Exam Limitations: no limitations General appearance: alert, in no apparent distress, obese Head exam: Present: atraumatic, normocephalic, normal inspection Eye exam: Present: normal appearance, PERRL, EOMI Pupils: Present: normal accommodation ENT exam: Present: normal exam, normal oropharynx, mucous membranes moist, TM's normal bilaterally, normal external ear exam Neck exam: Present: normal inspection, full ROM. Absent: tenderness Respiratory exam: Present: normal lung sounds bilaterally. Absent: respiratory distress, wheezes, rales Cardiovascular Exam: Present: regular rate, normal rhythm, normal heart sounds GI/Abdominal exam: Present: soft. Absent: distended, tenderness, guarding Extremities exam: Present: normal inspection, full ROM, normal capillary refill. Absent: tenderness Back exam: Present: normal inspection, full ROM. Absent: tenderness, CVA tenderness (R), CVA tenderness (L) Neurological exam: Present: alert, oriented X3 Psychiatric exam: Present: normal affect, normal mood Skin exam: Present: warm, dry, intact, normal color Course Vital Signs 01/14/20 20:11 Temperature 98 F Pulse Rate 83 Respiratory 18 Rate Blood Pressure 130/100 O2 Sat by Pulse 95 Oximetry Medical Decision Making - Medical Decision Making Patient 54-year-old female presenting to the emergency Department with a chief complaint of acid reflux. Physical examination, patient is a very mild pharyngeal erythema which I suspect is secondary to the acid reflux. No abdominal pain to palpation. CBC CMP is unremarkable. Patient was given IV fluids, Protonix and Pepcid. On reevaluation patient reports improve his symptoms. Patient did request a GI cocktail which was given to her. Patient was able to tolerated and did not vomit. She does have an appointment tomorrow with . Return parameters discussed the patient was understanding and agreeable. Case discussed with physician. - Lab Data Result diagrams: 01/14/20 21:20 01/14/20 21:20 Lab Results 01/14/20 01/14/20 Range/Units 21:20 21:20 WBC 7.4 (3.8-10.6) k/uL RBC 4.92 (3.80-5.40) m/uL Hgb 14.9 (11.4-16.0) gm/dL Hct 47.0 H (34.0-46.0) % MCV 95.6 (80.0-100.0) fL MCH 30.4 (25.0-35.0) pg MCHC 31.8 (31.0-37.0) g/dL RDW 12.9 (11.5-15.5) % Plt Count 295 (150-450) k/uL Neutrophils % 63 % Lymphocytes % 22 % Monocytes % 9 % Eosinophils % 4 % Basophils % 1 % Neutrophils # 4.7 (1.3-7.7) k/uL Lymphocytes # 1.7 (1.0-4.8) k/uL Monocytes # 0.7 (0-1.0) k/uL Eosinophils # 0.3 (0-0.7) k/uL Basophils # 0.0 (0-0.2) k/uL Sodium 137 (137-145) mmol/L Potassium 4.7 (3.5-5.1) mmol/L Chloride 102 (98-107) mmol/L Carbon Dioxide 27 (22-30) mmol/L Anion Gap 8 mmol/L BUN 8 (7-17) mg/dL Creatinine 0.97 (0.52-1.04) mg/dL Est GFR (CKD-EPI)AfAm 77 (>60 ml/min/1.73 sqM) Est GFR (CKD-EPI)NonAf 67 (>60 ml/min/1.73 sqM) Glucose 110 H (74-99) mg/dL Calcium 9.7 (8.4-10.2) mg/dL Total Bilirubin 0.7 (0.2-1.3) mg/dL AST 27 (14-36) U/L ALT 25 (4-34) U/L Alkaline Phosphatase 95 (38-126) U/L Total Protein 7.5 (6.3-8.2) g/dL Albumin 4.5 (3.5-5.0) g/dL Amylase 83 (30-110) U/L Lipase 70 (23-300) U/L Disposition Clinical Impression: Acid reflux Disposition: HOME SELF-CARE Condition: Stable Instructions (If sedation given, give patient instructions): Esophageal Spasm (ED) Additional Instructions: Follow-up with in the office. Return from her to department if symptoms worsen. Is patient prescribed a controlled substance at d/c from ED?: No Referrals: Len Silva MD [Primary Care Provider] - 1-2 days Time of Disposition: 23:35
[2020-01-14] MEDS ORDERED: SODIUM CHLORIDE 0.9% 1,000 ML IV STA (20:48)
[2020-01-14] MEDS ORDERED: PANTOPRAZOLE 40 MG/10 ML VIAL IVP STA (20:48)
[2020-01-14] MEDS ORDERED: ONDANSETRON 4 MG/2 ML VIAL IVP STA (20:48)
[2020-01-14] MEDS ORDERED: FAMOTIDINE 20 MG/2 ML VIAL IV STA (20:49)
[2020-01-14 21:31] LABS: Basophils % (A) 1 %; Eosinophils # (A) 0.3 k/uL (0-0.7); Eosinophils % (A) 4 %; HGB 14.9 gm/dL (11.4-16.0); Lymphocytes # (A) 1.7 k/uL (1.0-4.8); Lymphocytes % (A) 22 %; MCH 30.4 pg (25.0-35.0); MCHC 31.8 g/dL (31.0-37.0); MCV 95.6 fL (80.0-100.0); Monocytes # (A) 0.7 k/uL (0-1.0); Monocytes % (A) 9 %; Neutrophils # (A) 4.7 k/uL (1.3-7.7); Neutrophils % (A) 63 %; Platelet Count 295 k/uL (150-450); RBC 4.92 m/uL (3.80-5.40); RDW 12.9 % (11.5-15.5); WBC 7.4 k/uL (3.8-10.6)
[2020-01-14 21:42] LABS: Albumin 4.5 g/dL (3.5-5.0); Calcium 9.7 mg/dL (8.4-10.2); Potassium 4.7 mmol/L (3.5-5.1); Total Bilirubin 0.7 mg/dL (0.2-1.3); Total Protein 7.5 g/dL (6.3-8.2)
[2020-01-14] MEDS ORDERED: MAG HYDROX/AL HYDROX/SIMETH 30 ML, HYOSCYAMINE ELIXIR 10 ML, LIDOCAINE VISCOUS 2% 10 ML PO STA ×3 (23:00)
== END 2020-01-14 23:41 | disposition home or self-care (01) ==
LOC: EC 20:06
DX: K21.9 Gastro-esophageal reflux disease without esophagitis (principal); E07.9 Disorder of thyroid, unspecified; Z79.890 Hormone replacement therapy; Z79.899 Other long term (current) drug therapy; Z88.1 Allergy status to other antibiotic agents; Z91.012 Allergy to eggs; Z91.048 Other nonmedicinal substance allergy status; Z91.010 Allergy to peanuts; Z90.49 Acquired absence of other specified parts of digestive tract; Z90.710 Acquired absence of both cervix and uterus; Z87.891 Personal history of nicotine dependence
CPT/HCPCS: 36415; 80053; 82150; 83690; 85025; 99283; 96374; 96375 ×2; 96361; J2405; C9113

== ENCOUNTER → 2020-01-15 | Outpatient (CLI) | payer BC ==
[2020-01-15 10:33] VITALS: BP 156/93; PULSE 77; RESP 16; TEMP 98.4
[2020-01-15] MEDS: SODIUM CHLORIDE 0.9% 1,000 ML IV SCH ×2 (10:45→12:01)
== END | disposition home or self-care (01) ==
LOC: PROCWHC3 10:20
PROVIDERS: ATTEND Surgery
DX: E86.0 Dehydration (principal)
CPT/HCPCS: 36415; 96360; 96361

== ENCOUNTER → 2020-01-15 | Outpatient (CLI) | payer BC ==
[~2020-01-15] MED LIST changes: -LIDOCAINE 1% (10MG/ML) FOR IV START INTRADERMA ONE; -LIDOCAINE 1% INJ 10MG/ML (20 ML MDV) ONE; +ONDANSETRON 4 MG/2 ML VIAL ONE; -PROPOFOL 10 MG/ML 20 ML VIAL IV ONE
--- NOTE | 2020-01-15 14:27 | FL ---
EXAMINATION TYPE: FL barium swallow DATE OF EXAM: 01/15/2020 CLINICAL HISTORY: Dysphasia. Sensation of solid foods and pills getting stuck in mid and distal esoph hamida. Status post laparoscopic LAP-BAND removal 01/12/2020. Uncontrolled gastroesophageal reflux. TECHNIQUE: A single contrast esophagram is performed utilizing water-soluble contrast and subsequent ly barium. A total of 2 minutes 22 seconds of fluoroscopic time was utilized during procedure. Total images obta ined 20. COMPARISON: CT abdomen pelvis 01/10/2020. FINDINGS: Preliminary automation and controls supervisor image demonstrates no pneumoperitoneum and nonspecific bowel gas pattern. Surgical clips of the bilateral upper quadrants. The esophagus demonstrates normal primary peristaltic waves. There are essentially no secondary peris taltic waves demonstrated. With prone drinking, mild tertiary contractions and mildly delayed esophag eal emptying is seen. There is spontaneous gastroesophageal reflux seen throughout the examination. N o evidence of stricture. Tiny hiatal hernia. IMPRESSION: 1. Esophageal dysmotility with lack of secondary peristaltic waves, and presence of tertiary contract ions and mildly delayed esophageal emptying. 2. Gastroesophageal reflux. 3. Tiny hiatal hernia.
[2020-01-15 14:41] VITALS: BP 153/78; PULSE 72; TEMP 98.2; BMI 35.5
--- NOTE | 2020-01-15 14:59 | P.HPBAR ---
Bariatric H&P - History & Physicial H&P Date: 01/15/20 History & Physicial: Visit/CC: surgical follow up Patient initial contact: Initial weight: 134.717 kg Initial weight in pounds: 297.00 Height: 5 ft 7 in Initial BMI: 46.5 Last weight: Current weight: 102.965 kg Current weight in pounds: 227.00 Current BMI: 35.5 [place] body weight (based on NIH guidelines): 61.235 kg Excess body weight loss: 43.2% The patient is a 54 year-old F who presents for Bariatric Assessment. Patient presents today for postoperative visit. She has complaints of GERD. She's acting the emergency room yesterday. Esophagram shows evidence of some esophageal dysmotility and reflux. Past Medical History Past Medical History: GERD/Reflux, Thyroid Disorder Additional Past Medical History / Comment(s): environmental allergies, pt states unable to swallow pills unless she opens them and takes them with applesauce, states taking liquid diet . History of Any Multi-Drug Resistant Organisms: None Reported Past Surgical History: Bariatric Surgery, Cholecystectomy, Hysterectomy, Tonsillectomy Additional Past Surgical History / Comment(s): lap band 2007 (Dr Schuster)., c- section x2, lap band removal 01/12/2020 Dr schuster. Past Anesthesia/Blood Transfusion Reactions: No Reported Reaction Past Psychological History: No Psychological Hx Reported Smoking Status: Former smoker Past Alcohol Use History: None Reported Additional Past Alcohol Use History / Comment(s): quit smoking 1999, smoked 1 ppd, smoked approx 10 years. Past Drug Use History: None Reported - Past Family History Mother Family Medical History: Cancer Additional Family Medical History / Comment(s): Leukemia and Breast Cancer Surgical - Exam Vital Signs Temp Pulse BP 98.2 F 72 153/78 01/15/20 14:37 01/15/20 14:37 01/15/20 14:37 - General well developed, well nourished, no distress - Eyes PERRL - ENT normal pinna - Neck no masses - Respiratory normal expansion - Cardiovascular Rhythm: regular - Abdomen Abdomen: soft, non tender Bariatric Assessment & Plan Plan: GERD. Patient will start Carafate. She'll follow-up in 2 weeks. Bariatric Checklist Checklist: Plan: Checklist: EGD: 1. Hiatal hernia: 2. H. Pylori: HgbA1c: Vitamin D: Smoking: Former smoker Primary care physician referral: Shelia Boykin ([facility]) Psychiatry clearance: Cardiology clearance: Sleep study: Diet journal: VTE risk score: VTE risk level: Rehab needs at discharge:
== END | disposition home or self-care (01) ==
LOC: BARWHC3 10:22
PROVIDERS: ATTEND Surgery
DX: Z48.815 Encounter for surgical aftercare following surgery on the digestive system (principal); R13.10 Dysphagia, unspecified; K22.4 Dyskinesia of esophagus; K21.9 Gastro-esophageal reflux disease without esophagitis; K44.9 Diaphragmatic hernia without obstruction or gangrene
CPT/HCPCS: 74220; 99211; Q9967

== ENCOUNTER → 2020-01-22 | Outpatient (CLI) | payer BC ==
[2020-01-22 13:25] VITALS: BP 109/51; PULSE 79; RESP 16; TEMP 98.2; BMI 34.9
--- NOTE | 2020-01-22 14:08 | P.HPBAR ---
Bariatric H&P - History & Physicial H&P Date: 01/22/20 History & Physicial: Visit/CC: f/u Patient initial contact: Initial weight: 134.717 kg Initial weight in pounds: 297.00 Height: 5 ft 7 in Initial BMI: 46.5 Last weight: Current weight: 101.151 kg Current weight in pounds: 223.00 Current BMI: 34.9 [place] body weight (based on NIH guidelines): 61.235 kg Excess body weight loss: 45.6% The patient is a 54 year-old F who presents for Bariatric Assessment. Patient is status post lap band removal. She has had some mild GERD. Her dysphagia has improved. Past Medical History Past Medical History: GERD/Reflux, Thyroid Disorder Additional Past Medical History / Comment(s): environmental allergies, pt states unable to swallow pills unless she opens them and takes them with applesauce, states taking liquid diet . History of Any Multi-Drug Resistant Organisms: None Reported Past Surgical History: Bariatric Surgery, Cholecystectomy, Hysterectomy, Tonsillectomy Additional Past Surgical History / Comment(s): lap band 2008 (Dr Schuster)., c- section x2, lap band removal 01/12/2020 Dr schuster. Past Anesthesia/Blood Transfusion Reactions: No Reported Reaction Smoking Status: Former smoker - Past Family History Mother Family Medical History: Cancer Additional Family Medical History / Comment(s): Leukemia and Breast Cancer Surgical - Exam Vital Signs Temp Pulse Resp BP 98.2 F 79 16 109/51 01/22/20 13:23 01/22/20 13:23 01/22/20 13:23 01/22/20 13:23 - General well developed, well nourished, no distress - Eyes PERRL - ENT normal pinna - Neck no masses - Respiratory normal expansion - Cardiovascular Rhythm: regular - Abdomen Abdomen: soft, non tender Bariatric Assessment & Plan Plan: Patient's GERD will be observed. She'll continue omeprazole therapy. She'll follow-up in 4 weeks. Bariatric Checklist Checklist: Plan: Checklist: EGD: 1. Hiatal hernia: 2. H. Pylori: HgbA1c: Vitamin D: Smoking: Former smoker Primary care physician referral: Shelia Boykin ([facility]) Psychiatry clearance: Cardiology clearance: Sleep study: Diet journal: VTE risk score: VTE risk level: Rehab needs at discharge:
== END | disposition home or self-care (01) ==
LOC: BARWHC3 13:09
PROVIDERS: ATTEND Surgery
DX: Z48.815 Encounter for surgical aftercare following surgery on the digestive system (principal); K21.9 Gastro-esophageal reflux disease without esophagitis
CPT/HCPCS: 99211